=== PATIENT | female | born 1985 | race Hispanic/Latino ===

== ENCOUNTER 2017-12-03 14:27 | Emergency (ER) | payer OTHER, SELFPAY ==
[2017-12-03] MEDS ORDERED: NA CHLORIDE 0.9% 1,000 ML ONE (15:22)
[2017-12-03] MEDS ORDERED: MECLIZINE HCL 12.5 MG TAB ONE (15:22)
--- NOTE | 2017-12-03 15:35 | RAD REPORT ---
EXAM DESCRIPTION: CT - Head Brain Wo Cont - 12/03/2017 3:29 pm CLINICAL HISTORY: HEADACHE COMPARISON: No comparisons TECHNIQUE: All CT scans are performed using dose optimization technique as appropriate and may inclu de automated exposure control or mA/KV adjustment according to patient size. FINDINGS: No intracranial hemorrhage, hydrocephalus or extra-axial fluid collection.No areas of brai n edema or evidence of midline shift. The paranasal sinuses and mastoids are clear. The calvarium is intact. IMPRESSION: No acute intracranial abnormality.
[2017-12-03 15:54] LABS: Absolute Lymphocytes (CBC) 1.8 K/uL (0.7-4.9); Absolute Monocytes 0.5 K/uL (0.1-1.3); Absolute Neutrophil 7.5 K/uL (1.8-8.0); Basophils % 0.7 % (0-1.3); Eosinophils % 0.5 % (0-4.4); Hematocrit 40.3 % (36.0-45.0); Lymphocytes % 18.6 % (15.3-44.8); MCH 28.7 pg (27.0-35.0); MCV 83.2 fL (80-100); MPV 7.4 fL (7.6-11.3); Monocytes % 4.7 % (3.3-12.3); RBC Red Blood Cell Count 4.84 M/uL (3.86-4.86)
[2017-12-03 16:03] LABS: Bicarbonate 26 mEq/L (21-31); Glucose Level 134 mg/dL (65-120); Lipase 21 U/L (22-51); Potassium 3.6 mEq/L (3.6-5.0); Sodium Level 138 mEq/L (135-145)
[2017-12-03 16:09] LABS: ALT/SGPT 26 IU/L (10-60); AST/SGOT 22 IU/L (10-42); Albumin 4.4 g/dL (3.2-5.5); Alkaline Phosphatase 88 IU/L (42-121); Amylase Level 46 U/L (28-100); BUN Blood Urea Nitrogen 12 mg/dL (6-20); Bilirubin Direct < 0.1 mg/dL (0-0.2); Bilirubin Total 0.6 mg/dL (0.3-1.2); Protein, Total 8.4 g/dL (6.0-8.3)
--- NOTE | 2017-12-03 16:19 | ER ---
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 Transition of care: patient was not received from another setting of care. Onset of symptoms was December 03, 2017. Risk Assessment: Do you want to hurt yourself or someone else? Patient reports no desire to harm self or others. Initial Sepsis Screen: Does the patient meet any 2 criteria? No. Patient's initial sepsis screen is negative. Does the patient have a suspected source of infection? No. Patient's initial sepsis screen is negative. Care prior to arrival: None. 14:33 Method Of Arrival: Ambulatory 14:33 Acuity: LARY 3 Triage Assessment: 14:36 General: Appears in no apparent distress. uncomfortable, Behavior is calm, cooperative, hj appropriate for age. Pain: Complains of pain in head. GI: Reports nausea. 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 - Social history:: Smoking status: Patient/guardian denies using tobacco, Patient/guardian denies using alcohol. - Ebola Screening: : Patient negative for fever greater than or equal to 101.5 degrees Fahrenheit, and additional compatible Ebola Virus Disease symptoms Patient denies exposure to infectious person Patient denies travel to an Ebola-affected area in the 21 days before illness onset. Screenin:37 Abuse screen: Denies threats or abuse. Denies injuries from another. Nutritional hj screening: No deficits noted. Tuberculosis screening: No symptoms or risk factors identified. Fall Risk None identified. Assessment: 14:37 GI: Abdomen is non-distended. hj 14:53 General: Appears in no apparent distress. uncomfortable, Behavior is calm, cooperative, aj1 appropriate for age. Pain: Complains of pain in occipital area, right eye and left eye Pain does not radiate. Pain currently is 8 out of 10 on a pain scale. Quality of pain is described as throbbing, Pain began months ago Is continuous, Alleviated by nothing. Aggravated by nothing. Neuro: Level of Consciousness is awake, alert, obeys commands, Oriented to person, place, time, situation, Moves all extremities. Full function Gait is steady, Speech is normal, Facial symmetry appears normal, Pupils are PERRLA, Intact Reports dizziness, headache photophobia. Cardiovascular: Patient's skin is warm and dry. Respiratory: Airway is patent Respiratory effort is even, unlabored, Respiratory pattern is regular, symmetrical. GI: Abdomen is non-distended, Reports nausea. : No signs and/or symptoms were reported regarding the genitourinary system. EENT: No signs and/or symptoms were reported regarding the EENT system. Derm: No signs and/or symptoms reported regarding the dermatologic system. Skin is pink, warm \\T\\ dry. normal. Musculoskeletal: No signs and/or symptoms reported regarding the musculoskeletal system. Circulation, motion, and sensation intact. 15:44 Reassessment: Patient appears in no apparent distress at this time. No changes from aj1 previously documented assessment. Patient and/or family updated on plan of care and expected duration. Pain level reassessed. Patient is alert, oriented x 3, equal unlabored respirations, skin warm/dry/pink. 16:30 Reassessment: Patient discharge pending finishing bolus of IV fluids per fransico Nelson1 BRAKE OPERATOR SHEET METAL. 16:44 Reassessment: Patient appears in no apparent distress at this time. No changes from aj1 previously documented assessment. Patient and/or family updated on plan of care and expected duration. Pain level reassessed. Patient is alert, oriented x 3, equal unlabored respirations, skin warm/dry/pink. 17:36 Reassessment: Patient appears in no apparent distress at this time. No changes from aj1 previously documented assessment. Patient and/or family updated on plan of care and expected duration. Pain level reassessed. Patient is alert, oriented x 3, equal unlabored respirations, skin warm/dry/pink. Vital Signs: 14:37 BP 153 / 103; Pulse 98; Resp 18; Temp 98.4(O); Pulse Ox 100% on R/A; Weight 95.25 kg; hj Height 5 ft. 4 in. (162.56 cm); Pain 8/10; 15:44 BP 125 / 81; Pulse 82; Resp 18; Pulse Ox 100% on R/A; aj1 16:44 BP 123 / 76; Pulse 72; Resp 18; Pulse Ox 99% ; aj1 17:36 BP 122 / 75; Pulse 81; Resp 18; Pulse Ox 97% ; aj1 14:37 Body Mass Index 36.05 (95.25 kg, 162.56 cm) ED Course: 14:31 Patient arrived in ED. mr 14:31 None, None is Private Physician. mr 14:35 Triage completed. hj 14:36 Arm band placed on right wrist. hj 14:43 Daylin Hooper, IRMA is Primary Nurse. aj1 14:46 Melani Mittal FNP-C is PHCP. snw 14:46 Brandt Ford MD is Attending Physician. snw 14:53 Patient has correct armband on for positive identification. Bed in low position. Call [facility] light in reach. Side rails up X 1. 14:53 No provider procedures requiring assistance completed. aj1 15:28 Patient moved to [place] via wheelchair. nj 15:28 CT completed. Patient tolerated procedure well. Patient moved back from [place]. nj 15:29 CT Head Brain wo Cont In Process Unspecified. EDMS 15:41 Initial lab(s) drawn, by nc, sent to lab. Inserted saline lock: 20 gauge in right aj1 antecubital area, using aseptic technique. Blood collected. 17:37 IV discontinued, intact, bleeding controlled, No redness/swelling at site. Pressure aj1 dressing applied. Administered Medications: 15:26 Drug: Meclizine 50 mg Route: PO; aj1 17:39 Follow up: Response: No adverse reaction aj1 15:40 Drug: NS 0.9% 1000 ml Route: IV; Rate: 1000 ml; Site: right antecubital; aj1 17:39 Follow up: IV Status: Completed infusion; IV Intake: 1000ml aj1 Intake: 17:39 IV: 1000ml; Total: 1000ml. aj1 Outcome: 16:18 Discharge ordered by MD. interiano 17:38 Discharged to home ambulatory. aj1 17:38 Condition: good 17:38 Discharge instructions given to patient, Instructed on discharge instructions, follow up and referral plans. medication usage, Demonstrated understanding of instructions, follow-up care, medications, Prescriptions given X 1. 17:42 Patient left the ED. aj1 Signatures: Dispatcher [employer] EDMS Daylin Hooper, RN RN aj1 Melani Mittal, CARPENTER REPAIR-C CARPENTER REPAIR-Csnw Leti Ortiz mr Campos Akers RN RN hj Claus Pugh Corrections: (The following items were deleted from the chart) 15:25 14:33 Acuity: LARY 4 venkata hastings
--- NOTE | 2017-12-03 16:19 | EDPHYS ---
Physician Documentation [facility] Name: Juliane Robertson Age: 32 yrs Sex: Female : 1985 Arrival Date: 12/03/2017 Time: 14:31 Bed 23 Private MD: None, None ED Physician Brandt Ford HPI: 12/03 15:32 This 32 yrs old Female presents to ER via Ambulatory with complaints of snw Nausea/Vomiting, Headache. 15:32 The patient presents to the emergency department with nausea, vomiting. Onset: The snw symptoms/episode began/occurred gradually, 4 month(s) ago, and became persistent. Possible causes: unknown. The symptoms are alleviated by nothing. Associated signs and symptoms: The patient has no apparent associated signs or symptoms. Severity of symptoms: At their worst the symptoms were moderate in the emergency department the symptoms are unchanged. It is unknown whether or not the patient has had similar symptoms in the past. pt finished course of antibiotics without any change in symptoms, denies fever. Pain to occipital area with radiation toward bridge of nose. Pt states she has felt off balance since August. Had Mirena placed in March. This week pt began having some nausea and vomiting. 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 - Social history:: Smoking status: Patient/guardian denies using tobacco, Patient/guardian denies using alcohol. - Ebola Screening: : Patient negative for fever greater than or equal to 101.5 degrees Fahrenheit, and additional compatible Ebola Virus Disease symptoms Patient denies exposure to infectious person Patient denies travel to an Ebola-affected area in the 21 days before illness onset. ROS: 15:31 Constitutional: Negative for fever, chills, and weight loss, Eyes: Negative for injury, snw pain, redness, and discharge, ENT: Negative for injury, pain, and discharge, Neck: Negative for injury, pain, and swelling, Cardiovascular: Negative for chest pain, palpitations, and edema, Respiratory: Negative for shortness of breath, cough, wheezing, and pleuritic chest pain. 15:31 Back: Negative for injury and pain, : Negative for injury, bleeding, discharge, and swelling, MS/Extremity: Negative for injury and deformity, Skin: Negative for injury, rash, and discoloration. 15:31 Abdomen/GI: Positive for nausea and vomiting. 15:31 Neuro: Positive for dizziness. Exam: 15:31 Head/Face: Normocephalic, atraumatic. Eyes: Pupils equal round and reactive to light, snw extra-ocular motions intact. Lids and lashes normal. Conjunctiva and sclera are non-icteric and not injected. Cornea within normal limits. Periorbital areas with no swelling, redness, or edema. ENT: Nares patent. No nasal discharge, no septal abnormalities noted. Tympanic membranes are normal and external auditory canals are clear. Oropharynx with no redness, swelling, or masses, exudates, or evidence of obstruction, uvula midline. Mucous membranes moist. Neck: Trachea midline, no thyromegaly or masses palpated, and no cervical lymphadenopathy. Supple, full range of motion without nuchal rigidity, or vertebral point tenderness. No Meningismus. Chest/axilla: Normal chest wall appearance and motion. Nontender with no deformity. No lesions are appreciated. Cardiovascular: Regular rate and rhythm with a normal S1 and S2. No gallops, murmurs, or rubs. Normal PMI, no JVD. No pulse deficits. Respiratory: Lungs have equal breath sounds bilaterally, clear to auscultation and percussion. No rales, rhonchi or wheezes noted. No increased work of breathing, no retractions or nasal flaring. Abdomen/GI: Soft, non-tender, with normal bowel sounds. No distension or tympany. No guarding or rebound. No evidence of tenderness throughout. Back: No spinal tenderness. No costovertebral tenderness. Full range of motion. Skin: Warm, dry with normal turgor. Normal color with no rashes, no lesions, and no evidence of cellulitis. MS/ Extremity: Pulses equal, no cyanosis. Neurovascular intact. Full, normal range of motion. Neuro: Awake and alert, GCS 15, oriented to person, place, time, and situation. Cranial nerves II-XII grossly intact. Motor strength 5/5 in all extremities. Sensory grossly intact. Cerebellar exam normal. Normal gait. Psych: Awake, alert, with orientation to person, place and time. Behavior, mood, and affect are within normal limits. 15:31 Constitutional: The patient appears alert, awake, comfortable, well developed, well groomed, well nourished. Vital Signs: 14:37 BP 153 / 103; Pulse 98; Resp 18; Temp 98.4(O); Pulse Ox 100% on R/A; Weight 95.25 kg; hj Height 5 ft. 4 in. (162.56 cm); Pain 8/10; 15:44 BP 125 / 81; Pulse 82; Resp 18; Pulse Ox 100% on R/A; aj1 16:44 BP 123 / 76; Pulse 72; Resp 18; Pulse Ox 99% ; aj1 17:36 BP 122 / 75; Pulse 81; Resp 18; Pulse Ox 97% ; aj1 14:37 Body Mass Index 36.05 (95.25 kg, 162.56 cm) hj MDM: 14:51 Patient medically screened. julius 14:55 Patient medically screened. snw 16:23 Data reviewed: vital signs, nurses notes. Data interpreted: Pulse oximetry: on room air snw is 100 %. Interpretation: normal. Counseling: I had a detailed discussion with the patient and/or guardian regarding: the historical points, exam findings, and any diagnostic results supporting the discharge/admit diagnosis, the presence of at least one elevated blood pressure reading (>120/80) during this emergency department visit, lab results, radiology results, the need for outpatient follow up, to return to the emergency department if symptoms worsen or persist or if there are any questions or concerns that arise at home. Special discussion: Based on the history and exam findings, there is no indication for further emergent testing or inpatient evaluation. I discussed with the patient/guardian the need to see the primary care provider for further evaluation of the symptoms. 12/03 14:51 Order name: Urine Microscopic Only; Complete Time: 06:34 snw 12/03 15:15 Order name: Amylase, Serum; Complete Time: 16:12 snw 12/03 15:15 Order name: Basic Metabolic Panel; Complete Time: 16:12 snw 12/03 15:15 Order name: CBC with Diff; Complete Time: 16:12 snw 12/03 15:15 Order name: Creatinine for Radiology; Complete Time: 16:12 snw 12/03 15:15 Order name: Hepatic Function; Complete Time: 16:12 snw 12/03 14:51 Order name: Urine Test (obtain specimen); Complete Time: 15:03 snw 12/03 14:51 Order name: CT Head Brain wo Cont; Complete Time: 15:38 snw 12/03 15:15 Order name: Lipase; Complete Time: 16:12 snw 12/03 15:31 Order name: Urine Dipstick--Ancillary (enter results); Complete Time: 06:34 bd 12/03 15:31 Order name: Urine --Ancillary (enter results); Complete Time: 06:34 bd 12/03 17:39 Order name: Urine Culture EDWY 12/03 14:51 Order name: Urine Dipstick-Ancillary (obtain specimen); Complete Time: 15:03 snw 12/03 15:15 Order name: IV Saline Lock; Complete Time: 15:41 snw 12/03 15:15 Order name: Labs collected and sent; Complete Time: 15:41 snw Administered Medications: 15:26 Drug: Meclizine 50 mg Route: PO; aj1 17:39 Follow up: Response: No adverse reaction aj1 15:40 Drug: NS 0.9% 1000 ml Route: IV; Rate: 1000 ml; Site: right antecubital; aj1 17:39 Follow up: IV Status: Completed infusion; IV Intake: 1000ml aj1 Disposition: 12/03/17 16:18 Discharged to Home. Impression: Malaise and fatigue. - Condition is Stable. - Discharge Instructions: Cooking with Less Salt, Hypertension, Proteinuria, Fatigue. - Prescriptions for Zofran 4 mg Oral Tablet - take 1 tablet by ORAL route 3 times per day As needed; 20 tablet. - Work release form, Medication Reconciliation Form, Thank You Letter, Antibiotic Education, Prescription Opioid Use form. - Follow up: Private Physician; When: 1 - 2 days; Reason: Recheck today's complaints, Continuance of care, Re-evaluation by your physician. Follow up: Emergency Department; When: As needed; Reason: Worsening of condition. - Notes: Please keep log of blood pressure readings. Addendum: 12/07/2017 19:01 Co-signature as Attending Physician, Brandt Ford MD. g s Signatures: Dispatcher [employer] Daylin Bailey RN RN aj1 Porter Whitfield MD MD cha Therrien, Shelly, BUMP GRADER OPERATOR-C BUMP GRADER OPERATOR-Csnw Campos Akers, RN IRMA hj Brandt Ford MD MD gs Corrections: (The following items were deleted from the chart) 12/03 17:42 16:18 12/03/2017 16:18 Discharged to Home. Impression: Malaise and fatigue. Condition aj1 is Stable. Forms are Medication Reconciliation Form, Thank You Letter, Antibiotic Education, Prescription Opioid Use. Follow up: Private Physician; When: 1 - 2 days; Reason: Recheck today's complaints, Continuance of care, Re-evaluation by your physician. Follow up: Emergency Department; When: As needed; Reason: Worsening of condition. snw
[2017-12-03 16:57] LABS: Urine Blood NEGATIVE (NEG); Urine Glucose NEGATIVE (NEG); Urine Protein 3+ (NEG); Urine Specific Gravity >1.030 (1.005-1.030)
[2017-12-03 17:38] LABS: Urine Bacteria 20-50 /HPF (<20); Urine Culture Reflex Order REFLEXED; Urine RBC <5 /HPF (NONE SEEN)
[2017-12-03 18:04] VITALS: TEMP 98.4
[2017-12-03 18:07] VITALS: BP 122/75; O2SAT 97
== END 2017-12-03 17:42 | disposition home or self-care (01) ==
LOC: ER 14:27
DX: R53.81 Other malaise (principal); R53.83 Other fatigue
CPT/HCPCS: 36415; 70450; 80048; 80076; 81003; 81015; 81025; 82150; 83690; 85025; 87086; 87088; 96360; 96361; 99284; J7030

== ENCOUNTER 2018-02-05 00:16 | Emergency (ER) | payer OTHER, SELFPAY ==
[2018-02-05] MEDS ORDERED: ONDANSETRON 4 MG (ODT) TAB ONE (01:02)
[2018-02-05 01:44] LABS: Urine Blood NEGATIVE (NEG); Urine Glucose NEGATIVE (NEG); Urine Protein NEGATIVE (NEG); Urine pH 6.5 (5.0-7.0)
[2018-02-05] MEDS ORDERED: KETOROLAC 30 MG/ML INJ ONE (02:38)
--- NOTE | 2018-02-05 02:42 | EDPHYS ---
Physician Documentation [facility] Name: Juliane Robertson Age: 32 yrs Sex: Female : 1985 Arrival Date: 02/05/2018 Time: 00:20 Bed 20 Private MD: Abdulaziz Bennett ED Physician Kalen Georges HPI: 02/05 01:00 This 32 yrs old Female presents to ER via Ambulatory with complaints of pm1 TINGLING OF ARM SHOULDER AND BACK OF HEAD. 01:00 The patient or guardian complains of pain. Onset: The symptoms/episode began/occurred pm1 this morning. Context: The problem was sustained at home, The neck injury/problem resulted from from unknown cause. Associated signs and symptoms: Pertinent positives: numbness, in the left arm, tingling, in the left arm. Modifying factors: The symptoms are alleviated by shaking hand the symptoms are aggravated by nothing. Severity of symptoms: in the emergency department the symptoms have improved. The patient has not experienced similar symptoms in the past. 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 - Social history:: Smoking status: Patient/guardian denies using tobacco. - Ebola Screening: : No symptoms or risks identified at this time. ROS: 01:00 Constitutional: Negative for fever, chills, and weight loss, Eyes: Negative for injury, pm1 pain, redness, and discharge, ENT: Negative for injury, pain, and discharge, Cardiovascular: Negative for chest pain, palpitations, and edema. 01:00 Respiratory: Negative for shortness of breath, cough, wheezing, and pleuritic chest pain, Abdomen/GI: Negative for abdominal pain, nausea, vomiting, diarrhea, and constipation, Back: Negative for injury and pain, : Negative for injury, bleeding, discharge, and swelling, MS/Extremity: Negative for injury and deformity, Skin: Negative for injury, rash, and discoloration. 01:00 Neck: Positive for Pain. 01:00 Neuro: Positive for numbness, tingling, of the left arm. Exam: 01:00 Constitutional: This is a well developed, well nourished patient who is awake, alert, pm1 and in no acute distress. Head/Face: Normocephalic, atraumatic. Eyes: Pupils equal round and reactive to light, extra-ocular motions intact. Lids and lashes normal. Conjunctiva and sclera are non-icteric and not injected. Cornea within normal limits. Periorbital areas with no swelling, redness, or edema. ENT: Nares patent. No nasal discharge, no septal abnormalities noted. Tympanic membranes are normal and external auditory canals are clear. Oropharynx with no redness, swelling, or masses, exudates, or evidence of obstruction, uvula midline. Mucous membranes moist. 01:00 Neck: Trachea midline, no thyromegaly or masses palpated, and no cervical lymphadenopathy. Supple, full range of motion without nuchal rigidity, or vertebral point tenderness. No Meningismus. Chest/axilla: Normal chest wall appearance and motion. Nontender with no deformity. No lesions are appreciated. Cardiovascular: Regular rate and rhythm with a normal S1 and S2. No gallops, murmurs, or rubs. Normal PMI, no JVD. No pulse deficits. Respiratory: Lungs have equal breath sounds bilaterally, clear to auscultation and percussion. No rales, rhonchi or wheezes noted. No increased work of breathing, no retractions or nasal flaring. Abdomen/GI: Soft, non-tender, with normal bowel sounds. No distension or tympany. No guarding or rebound. No evidence of tenderness throughout. 01:00 Skin: Warm, dry with normal turgor. Normal color with no rashes, no lesions, and no evidence of cellulitis. MS/ Extremity: Pulses equal, no cyanosis. Neurovascular intact. Full, normal range of motion. 01:00 Back: normal spinal alignment noted, muscle spasm, is appreciated in the left trapezius. 01:00 Neuro: Orientation: is normal, Cranial nerves: CN II- XII are normal as tested, Motor: moves all fours, strength is normal, strength is 5/5 in all extremities, Sensation: is normal, no obvious gross deficits, Gait: is steady, at a normal pace, without difficulty. Vital Signs: 00:35 BP 145 / 94; Pulse 91; Resp 20; Temp 98.4; Pulse Ox 100% on R/A; Weight 99.79 kg (R); ak1 Height 5 ft. 4 in. (162.56 cm) (R); Pain 5/10; 01:31 BP 122 / 56; Pulse 72; Resp 18; Temp 98.3; Pulse Ox 100% on R/A; ak1 02:07 BP 115 / 60; Pulse 75; Resp 18; Pulse Ox 100% on R/A; ak1 02:45 BP 118 / 57; Pulse 72; Resp 18; Temp 98.3; Pulse Ox 100% on R/A; Pain 3/10; ak1 00:35 Body Mass Index 37.76 (99.79 kg, 162.56 cm) ak1 MDM: 00:37 Patient medically screened. pm1 02:40 Data reviewed: vital signs. Data interpreted: Pulse oximetry: on room air is 100 %. pm1 Interpretation: normal. Counseling: I had a detailed discussion with the patient and/or guardian regarding: the historical points, exam findings, and any diagnostic results supporting the discharge/admit diagnosis, radiology results, the need for outpatient follow up, to return to the emergency department if symptoms worsen or persist or if there are any questions or concerns that arise at home. 02/05 00:59 Order name: Urine Dipstick--Ancillary (enter results); Complete Time: 02:17 ms 02/05 01:00 Order name: Urine --Ancillary (enter results) mt 02/05 00:44 Order name: CT Head C Spine pm1 02/05 01:00 Order name: Urine --Ancillary EDHI 02/05 00:44 Order name: Urine Dipstick-Ancillary (obtain specimen); Complete Time: 00:54 pm1 02/05 00:44 Order name: Urine Test (obtain specimen); Complete Time: 00:54 pm1 Administered Medications: 00:58 Drug: Zofran 4 mg Route: PO; ak1 01:01 Follow up: Response: No adverse reaction ak1 02:37 Drug: TORadol 60 mg Route: IM; Site: left gluteus; ak1 02:37 Follow up: Response: No adverse reaction ak1 Disposition: 07:03 Co-signature as Attending Physician, Kalen Georges MD I agree with the assessment and tw4 plan of care. Attestation: The patient's history, exam findings, diagnostics, and a summary of any interventions or procedures was reviewed in detail with Asif Charles NP. Disposition: 02/05/18 02:41 Discharged to Home. Impression: Radiculopathy, cervical region, Muscle spasm. - Condition is Stable. - Discharge Instructions: Cervical Radiculopathy, Muscle Cramps and Spasms. - Prescriptions for Naprosyn 500 mg Oral Tablet - take 1 tablet by ORAL route 2 times per day take with food; 30 tablet. Cyclobenzaprine 10 mg Oral Tablet - take 1 tablet by ORAL route every 8 hours As needed; 30 tablet. - Medication Reconciliation Form, Thank You Letter form. - Follow up: Emergency Department; When: As needed; Reason: Worsening of condition. Follow up: Private Physician; When: 2 - 3 days; Reason: Recheck today's complaints, Continuance of care, Re-evaluation by your physician. - Problem is new. - Symptoms have improved. Signatures: Dispatcher [employer] EDHI Zoë Briones RN RN ak1 Asif Charles, KRYSTLE GEM SETTER pm1 Kalen Georges MD MD tw4 Corrections: (The following items were deleted from the chart) 02:49 02:41 02/05/2018 02:41 Discharged to Home. Impression: Radiculopathy, cervical region; ak1 Muscle spasm. Condition is Stable. Forms are Medication Reconciliation Form, Thank You Letter, Antibiotic Education, Prescription Opioid Use. Follow up: Emergency Department; When: As needed; Reason: Worsening of condition. Follow up: Private Physician; When: 2 - 3 days; Reason: Recheck today's complaints, Continuance of care, Re-evaluation by your physician. Problem is new. Symptoms have improved. pm1
--- NOTE | 2018-02-05 02:42 | ER ---
Nurse's Notes [facility] Name: Juliane Robertson Age: 32 yrs Sex: Female : 1985 Arrival Date: 02/05/2018 Time: 00:20 Bed 20 Private MD: Abdulaziz Bennett Diagnosis: Radiculopathy, cervical region;Muscle spasm Presentation: 02/05 00:43 Presenting complaint: Patient states: issues with IUD since 03/2017. Dr. Metcalf tried to ak1 remove IUD X2 with no success. pt stated that once "medicaid kicks in" Dr. Metcalf will take pt to OR for IUD removal. pt c/o pain to left bicep at 0300 yesterday. pt c/o left forearm tingling with left hand "falling asleep" at 2030 and burning sensation to left shoulder at 2330. pt with equal clinical care coordinator and full ROM to left hand, elbow and shoulder. Transition of care: patient was not received from another setting of care. Onset of symptoms is unknown. Risk Assessment: Do you want to hurt yourself or someone else? Patient reports no desire to harm self or others. Initial Sepsis Screen: Does the patient meet any 2 criteria? No. Patient's initial sepsis screen is negative. Does the patient have a suspected source of infection? No. Patient's initial sepsis screen is negative. Care prior to arrival: None. 00:43 Method Of Arrival: Ambulatory ak1 00:43 Acuity: LARY 3 ak1 Triage Assessment: 00:37 General: Appears in no apparent distress. Behavior is cooperative, anxious. Pain: ak1 Complains of pain in left arm. EENT: No signs and/or symptoms were reported regarding the EENT system. 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 Gait is steady, Speech is normal, Facial symmetry appears normal. Cardiovascular: No deficits noted. Respiratory: No deficits noted. GI: No signs and/or symptoms were reported involving the gastrointestinal system. : No signs and/or symptoms were reported regarding the genitourinary system. Derm: Reports tingling, nae horse in left bicep at 0300 yesterday. pt c/o tingling to let forearm and left hand "fell asleep" at 2030. pt c/o burning sensation to left shoulder and left side of neck at 2330. pt stated she has been having issues with headaches and dizziness since 03/2017 [address] IUD was placed. Dr. Metcalf tried to remove IUD X2 with no success. pt states after Medicaid "kicks in" Dr. Metcalf will take pt to OR to remove IUD. 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 - Social history:: Smoking status: Patient/guardian denies using tobacco. - Ebola Screening: : No symptoms or risks identified at this time. Screenin:46 Abuse screen: Denies threats or abuse. Denies injuries from another. Nutritional ak1 screening: No deficits noted. Tuberculosis screening: No symptoms or risk factors identified. Fall Risk None identified. Assessment: 00:46 Reassessment: Patient appears in no apparent distress at this time. No changes from ak1 previously documented assessment. Patient is alert, oriented x 3, equal unlabored respirations, skin warm/dry/pink. see triage assessment. 02:18 Reassessment: Patient appears in no apparent distress at this time. No changes from ak1 previously documented assessment. Patient and/or family updated on plan of care and expected duration. Pain level reassessed. Patient is alert, oriented x 3, equal unlabored respirations, skin warm/dry/pink. Vital Signs: 00:35 BP 145 / 94; Pulse 91; Resp 20; Temp 98.4; Pulse Ox 100% on R/A; Weight 99.79 kg (R); ak1 Height 5 ft. 4 in. (162.56 cm) (R); Pain 5/10; 01:31 BP 122 / 56; Pulse 72; Resp 18; Temp 98.3; Pulse Ox 100% on R/A; ak1 02:07 BP 115 / 60; Pulse 75; Resp 18; Pulse Ox 100% on R/A; ak1 02:45 BP 118 / 57; Pulse 72; Resp 18; Temp 98.3; Pulse Ox 100% on R/A; Pain 3/10; ak1 00:35 Body Mass Index 37.76 (99.79 kg, 162.56 cm) ak1 ED Course: 00:20 Patient arrived in ED. es 00:20 Abdulaziz Bennett MD is Private Physician. es 00:28 Zoë Briones RN is Primary Nurse. ak1 00:35 Arm band placed on Patient placed in an exam room, on a stretcher, on pulse oximetry, ak1 Patient notified of wait time. 00:37 Asif Charles NP is PHCP. pm1 00:37 Kalen Georges MD is Attending Physician. pm1 00:46 Triage completed. ak1 00:46 Patient has correct armband on for positive identification. Bed in low position. Call ak1 light in reach. Side rails up X 1. Pulse ox on. NIBP on. 00:54 Urine collected: clean catch specimen, clear. ak1 01:08 CT completed. Patient tolerated procedure well. Patient moved to CT via wheelchair. Patient moved back from CT. 01:09 CT Head C Spine In Process Unspecified. EDMS 01:32 No provider procedures requiring assistance completed. ak1 01:35 Urine --Ancillary (enter results) Sent. ak1 02:38 Patient did not have IV access during this emergency room visit. ak1 Administered Medications: 00:58 Drug: Zofran 4 mg Route: PO; ak1 01:01 Follow up: Response: No adverse reaction ak1 02:37 Drug: TORadol 60 mg Route: IM; Site: left gluteus; ak1 02:37 Follow up: Response: No adverse reaction ak1 Outcome: 02:41 Discharge ordered by . pm1 02:41 Discharged to home ambulatory. ak1 02:41 Condition: good 02:41 Discharge instructions given to patient, Instructed on discharge instructions, follow up and referral plans. no drinking with medication, no driving heavy equipment, medication usage, Demonstrated understanding of instructions, follow-up care, medications, Prescriptions given X 2. 02:49 Patient left the ED. ak1 Signatures: Dispatcher [employer] EDMS Alice Fine Satinder Snider Zoë Briones, IRMA RN ak1 Asif Charles, KRYSTLE ARCHIVES SPECIALIST pm1
[2018-02-05 02:53] VITALS: O2SAT 100
[2018-02-05 02:54] VITALS: TEMP 98.3
[2018-02-05 02:56] VITALS: BP 118/57
--- NOTE | 2018-02-05 08:26 | RAD REPORT ---
EXAM DESCRIPTION: CT - [id number] - 02/05/2018 4:19 am CLINICAL HISTORY: Trauma, head and neck injury. Headache;Radiculopathy COMPARISON: No comparisons TECHNIQUE: Axial 5 mm thick images of the head were obtained. Axial 2 mm thick images of the cervical spine were obtained with sagittal and coronal reconstruction images generated and reviewed. All CT scans are performed using dose optimization technique as appropriate and may include automated exposure control or mA/KV adjustment according to patient size. FINDINGS: CT HEAD WITHOUT CONTRAST: No acute hemorrhage, hydrocephalus or extra-axial collection is identified.No areas of brain edema or midline shift. The paranasal sinuses and mastoids are clear.The calvarium is intact. CT CERVICAL SPINE WITHOUT CONTRAST: No fracture or subluxation.No prevertebral soft tissues swelling is identified. IMPRESSION: No acute intracranial or cervical spine findings.
== END 2018-02-05 02:49 | disposition home or self-care (01) ==
LOC: ER 00:16
DX: M54.12 Radiculopathy, cervical region (principal); M62.838 Other muscle spasm
CPT/HCPCS: 36415; 70450; 72125; 80053; 81003; 81025; 85025; 96372; 96374; 96375; 99284; J2930

== ENCOUNTER 2018-02-05 19:20 | Emergency (ER) | payer OTHER, SELFPAY ==
[2018-02-05] MEDS ORDERED: DIPHENHYDRAMINE 50 MG/ML VIAL ONE (20:06)
[2018-02-05] MEDS ORDERED: METHYLPREDNISOLONE 125 MG INJ ONE (20:06)
[2018-02-05] MEDS ORDERED: FAMOTIDINE 20 MG/2 ML VIAL IV ONE (20:06)
[2018-02-05 20:23] LABS: Absolute Lymphocytes (CBC) 1.9 K/uL (0.7-4.9); Absolute Monocytes 0.4 K/uL (0.1-1.3); Absolute Neutrophil 6.3 K/uL (1.8-8.0); Basophils % 1.6 % (0-1.3); Hematocrit 39.6 % (36.0-45.0); Lymphocytes % 21.6 % (15.3-44.8); MCH 29.1 pg (27.0-35.0); MCV 86.8 fL (80-100); MPV 7.8 fL (7.6-11.3); Monocytes % 4.8 % (3.3-12.3); RBC Red Blood Cell Count 4.57 M/uL (3.86-4.86)
[2018-02-05 20:32] LABS: ALT/SGPT 33 U/L (12-78); AST/SGOT 18 U/L (15-37); Alkaline Phosphatase 84 U/L (45-117); BUN Blood Urea Nitrogen 15 mg/dL (7-18); Bicarbonate 28 mmol/L (21-32); Bilirubin Total 0.4 mg/dL (0.2-1.0); Glucose Level 108 mg/dL (74-106); Potassium 4.1 mmol/L (3.5-5.1); Protein, Total 7.8 g/dL (6.4-8.2); Sodium Level 140 mmol/L (136-145)
--- NOTE | 2018-02-05 20:53 | EDPHYS ---
Physician Documentation [facility] Name: Juliane Robertson Age: 32 yrs Sex: Female : 1985 Arrival Date: 02/05/2018 Time: 19:23 Bed 8 Private MD: Abdulaziz Bennett ED Physician Kalen Georges HPI: 02/05 20:50 This 32 yrs old Female presents to ER via Ambulatory with complaints of pm1 Breathing Difficulty. 20:50 The patient has shortness of breath at rest. Onset: The symptoms/episode began/occurred pm1 yesterday, 1 hour after taking naproxen prescribed from ER visit yesterday. Duration: The symptoms are continuous. The patient's shortness of breath has no apparent modifying factors. Associated signs and symptoms: Pertinent positives: sore throat, Pertinent negatives: chest pain, non-productive cough, productive cough, fever, vomiting. Severity of symptoms: in the emergency department the symptoms are unchanged. The patient has not experienced similar symptoms in the past. The patient has been recently seen at the [facility] Emergency Department, yesterday, for unrelated complaints, muscle spasm of neck. patient believes that her symptoms are related to the inability to have her IUD removed. 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 - Social history:: Smoking status: Patient/guardian denies using tobacco, Patient/guardian denies using alcohol, street drugs. - Ebola Screening: : No symptoms or risks identified at this time. ROS: 20:50 Constitutional: Negative for fever, chills, and weight loss, Eyes: Negative for injury, pm1 pain, redness, and discharge, Neck: Negative for injury, pain, and swelling. 20:50 Cardiovascular: Negative for chest pain, palpitations, and edema. 20:50 Abdomen/GI: Negative for abdominal pain, nausea, vomiting, diarrhea, and constipation, Back: Negative for injury and pain, : Negative for injury, bleeding, discharge, and swelling, MS/Extremity: Negative for injury and deformity, Skin: Negative for injury, rash, and discoloration, Neuro: Negative for headache, weakness, numbness, tingling, and seizure. 20:50 ENT: Positive for sore throat, Negative for drainage from ear(s), ear pain, difficulty swallowing, difficulty handling secretions, hoarseness. 20:50 Respiratory: Positive for shortness of breath, Negative for cough, sputum production, wheezing. Exam: 20:50 Constitutional: This is a well developed, well nourished patient who is awake, alert, pm1 and in no acute distress. Head/Face: Normocephalic, atraumatic. Eyes: Pupils equal round and reactive to light, extra-ocular motions intact. Lids and lashes normal. Conjunctiva and sclera are non-icteric and not injected. Cornea within normal limits. Periorbital areas with no swelling, redness, or edema. ENT: Nares patent. No nasal discharge, no septal abnormalities noted. Tympanic membranes are normal and external auditory canals are clear. Oropharynx with no redness, swelling, or masses, exudates, or evidence of obstruction, uvula midline. Mucous membranes moist. Neck: Trachea midline, no thyromegaly or masses palpated, and no cervical lymphadenopathy. Supple, full range of motion without nuchal rigidity, or vertebral point tenderness. No Meningismus. Chest/axilla: Normal chest wall appearance and motion. Nontender with no deformity. No lesions are appreciated. Cardiovascular: Regular rate and rhythm with a normal S1 and S2. No gallops, murmurs, or rubs. Normal PMI, no JVD. No pulse deficits. Respiratory: Lungs have equal breath sounds bilaterally, clear to auscultation and percussion. No rales, rhonchi or wheezes noted. No increased work of breathing, no retractions or nasal flaring. Abdomen/GI: Soft, non-tender, with normal bowel sounds. No distension or tympany. No guarding or rebound. No evidence of tenderness throughout. Back: No spinal tenderness. No costovertebral tenderness. Full range of motion. Skin: Warm, dry with normal turgor. Normal color with no rashes, no lesions, and no evidence of cellulitis. MS/ Extremity: Pulses equal, no cyanosis. Neurovascular intact. Full, normal range of motion. 20:50 Neuro: Orientation: is normal, Motor: is normal, moves all fours. Vital Signs: 19:36 BP 154 / 85; Pulse 82; Resp 16 S; Temp 98.6(O); Pulse Ox 100% on R/A; Weight 99.79 kg bb (R); Height 5 ft. 4 in. (162.56 cm) (R); Pain 8/10; 20:11 BP 124 / 80; Pulse 91; Resp 16; Pulse Ox 99% on R/A; mt 20:55 BP 135 / 93; Pulse 80; Resp 16; Pulse Ox 100% on R/A; mt 19:36 Body Mass Index 37.76 (99.79 kg, 162.56 cm) bb MDM: 19:32 Patient medically screened. tw4 20:50 Data reviewed: vital signs. Data interpreted: Pulse oximetry: on room air is 99 %. pm1 Interpretation: normal. Counseling: I had a detailed discussion with the patient and/or guardian regarding: the historical points, exam findings, and any diagnostic results supporting the discharge/admit diagnosis, the need for outpatient follow up, to return to the emergency department if symptoms worsen or persist or if there are any questions or concerns that arise at home. 02/05 19:56 Order name: CBC with Diff; Complete Time: 20:49 pm1 02/05 19:56 Order name: CMP; Complete Time: 20:49 pm1 02/05 19:56 Order name: IV Saline Lock; Complete Time: 20:02 pm1 Administered Medications: 20:14 Drug: Pepcid 20 mg Route: IVP; Site: right antecubital; ak1 21:00 Follow up: Response: No adverse reaction ak1 20:14 Drug: SOLU-Medrol 125 mg Route: IVP; Site: right antecubital; ak1 21:00 Follow up: Response: No adverse reaction ak1 20:14 Drug: Benadryl 25 mg Route: IVP; Site: right antecubital; ak1 21:00 Follow up: Response: No adverse reaction ak1 Disposition: 02/06 02:48 Co-signature as Attending Physician, Kalen Georges MD I agree with the assessment and tw4 plan of care. Attestation: The patient's history, exam findings, diagnostics, and a summary of any interventions or procedures was reviewed in detail with Asif Charles NP. Disposition: 02/05/18 20:52 Discharged to Home. Impression: Possible drug allergy reaction to naproxen. - Condition is Stable. - Discharge Instructions: Drug Allergy. - Prescriptions for Benadryl 25 mg Oral Capsule - take 1 capsule by ORAL route every 6 hours As needed; 30 tablet. Pepcid 20 mg Oral Tablet - take 1 tablet by ORAL route every 12 hours for 10 days; 20 tablet. Medrol (Soren) 4 mg Oral Tablets, Dose Pack - take 1 tablet by ORAL route as directed - follow package instructions; 1 packet. - Medication Reconciliation Form, Thank You Letter form. - Follow up: Emergency Department; When: As needed; Reason: Worsening of condition. Follow up: Private Physician; When: 2 - 3 days; Reason: Recheck today's complaints, Continuance of care, Re-evaluation by your physician. - Problem is new. - Symptoms have improved. Signatures: Dispatcher [employer] EDMS Nichole Ward RN RN bb Krenek, Amber, RN RN ak1 Asif Charles, KRYSTLE MANAGEMENT ARCHITECT pm1 Kalen Georges MD MD tw4 Corrections: (The following items were deleted from the chart) 02/05 20:52 20:52 02/05/2018 20:52 Discharged to Home. Impression: Possible drug allergic reaction. pm1 Condition is Stable. Forms are Medication Reconciliation Form, Thank You Letter, Antibiotic Education, Prescription Opioid Use. Follow up: Emergency Department; When: As needed; Reason: Worsening of condition. Follow up: Private Physician; When: 2 - 3 days; Reason: Recheck today's complaints, Continuance of care, Re-evaluation by your physician. Problem is new. Symptoms have improved. pm1 21:32 20:52 02/05/2018 20:52 Discharged to Home. Impression: Possible drug allergy reaction ak1 to naproxen. Condition is Stable. Forms are Medication Reconciliation Form, Thank You Letter, Antibiotic Education, Prescription Opioid Use. Follow up: Emergency Department; When: As needed; Reason: Worsening of condition. Follow up: Private Physician; When: 2 - 3 days; Reason: Recheck today's complaints, Continuance of care, Re-evaluation by your physician. Problem is new. Symptoms have improved. pm1
--- NOTE | 2018-02-05 20:53 | ER ---
Nurse's Notes [facility] Name: Juliane Robertson Age: 32 yrs Sex: Female : 1985 Arrival Date: 02/05/2018 Time: 19:23 Bed 8 Private MD: Abdulaziz Bennett Diagnosis: Possible drug allergy reaction to naproxen Presentation: 02/05 19:32 Presenting complaint: Patient states: she was here last night but this afternoon she bb started having difficulty breathing, with tightness in throat and pressure in the epigastric area. Transition of care: patient was not received from another setting of care. Onset of symptoms was February 05, 2018. Risk Assessment: Do you want to hurt yourself or someone else? Patient reports no desire to harm self or others. Initial Sepsis Screen: Does the patient meet any 2 criteria? No. Patient's initial sepsis screen is negative. Does the patient have a suspected source of infection? No. Patient's initial sepsis screen is negative. Care prior to arrival: None. 19:32 Method Of Arrival: Ambulatory bb 19:32 Acuity: LARY 4 bb Triage Assessment: 20:55 Respiratory: Onset: The symptoms/episode began/occurred. ak1 20:58 General: Appears in no apparent distress. Behavior is cooperative, anxious. ak1 Respiratory: Reports shortness of breath since this afternoon. pt continues to believe that her IUD is causing her allergic reaction. pt was seen in ER last night for muscle spasm in upper back and shoulder. the patient has mild shortness of breath. 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 - Social history:: Smoking status: Patient/guardian denies using tobacco, Patient/guardian denies using alcohol, street drugs. - Ebola Screening: : No symptoms or risks identified at this time. Screenin:55 Abuse screen: Denies threats or abuse. Denies injuries from another. Nutritional ak1 screening: No deficits noted. Tuberculosis screening: No symptoms or risk factors identified. Fall Risk None identified. Assessment: 19:30 General: Appears in no apparent distress. Behavior is cooperative, anxious. Pain: ak1 Complains of pain in epigastric area. Neuro: No deficits noted. Cardiovascular: Rhythm is regular. Respiratory: Airway is patent Respiratory effort is even, unlabored, Breath sounds are clear bilaterally. GI: No signs and/or symptoms were reported involving the gastrointestinal system. : No signs and/or symptoms were reported regarding the genitourinary system. EENT: No signs and/or symptoms were reported regarding the EENT system. Derm: Skin is dry, Skin temperature is warm no rash or hives noted in ER. Musculoskeletal: No signs and/or symptoms reported regarding the musculoskeletal system. 20:57 Reassessment: Patient appears in no apparent distress at this time. Patient is alert, ak1 oriented x 3, equal unlabored respirations, skin warm/dry/pink. no resp distress noted while in ER, no vomiting noted while in ER. no rash, no hives noted while in ER. Vital Signs: 19:36 BP 154 / 85; Pulse 82; Resp 16 S; Temp 98.6(O); Pulse Ox 100% on R/A; Weight 99.79 kg bb (R); Height 5 ft. 4 in. (162.56 cm) (R); Pain 8/10; 20:11 BP 124 / 80; Pulse 91; Resp 16; Pulse Ox 99% on R/A; mt 20:55 BP 135 / 93; Pulse 80; Resp 16; Pulse Ox 100% on R/A; mt 19:36 Body Mass Index 37.76 (99.79 kg, 162.56 cm) ED Course: 19:23 Patient arrived in ED. es 19:23 Abdulaziz Bennett MD is Private Physician. es 19:32 Kalen Georges MD is Attending Physician. tw4 19:35 Triage completed. bb 19:36 Asif Charles NP is PHCP. pm1 19:36 Arm band placed on Patient placed in an exam room, on a stretcher, on pulse oximetry. bb 19:58 Zoë Briones, RN is Primary Nurse. ak1 20:02 Inserted saline lock: 20 gauge in right antecubital area, using aseptic technique. mt Blood collected. 20:59 Patient has correct armband on for positive identification. Bed in low position. Call ak1 light in reach. Side rails up X2. Adult w/ patient. Pulse ox on. NIBP on. 20:59 No provider procedures requiring assistance completed. ak1 21:32 IV discontinued, intact, bleeding controlled, No redness/swelling at site. Pressure ak1 dressing applied. Administered Medications: 20:14 Drug: Pepcid 20 mg Route: IVP; Site: right antecubital; ak1 21:00 Follow up: Response: No adverse reaction ak1 20:14 Drug: SOLU-Medrol 125 mg Route: IVP; Site: right antecubital; ak1 21:00 Follow up: Response: No adverse reaction ak1 20:14 Drug: Benadryl 25 mg Route: IVP; Site: right antecubital; ak1 21:00 Follow up: Response: No adverse reaction ak1 Outcome: 20:52 Discharge ordered by . pm1 20:59 Condition: improved ak1 21:32 Discharged to home ambulatory, with family. ak1 21:32 Discharge instructions given to patient, family, Instructed on discharge instructions, follow up and referral plans. no drinking with medication, no driving heavy equipment, medication usage, Demonstrated understanding of instructions, follow-up care, medications, Prescriptions given X 3. 21:32 Patient left the ED. ak1 Signatures: Alice Fine Brenda, RN RN Zoë Preciado RN RN ak1 Asif Charles, KRYSTLE MANAGER PROPOSAL pm1 Tania Ruiz mt, Terrence, MD MD tw4
[2018-02-05 21:44] VITALS: TEMP 98.6
[2018-02-05 21:47] VITALS: BP 135/93; O2SAT 100
== END 2018-02-05 21:32 | disposition home or self-care (01) ==
LOC: ER 19:20
DX: R06.02 Shortness of breath (principal); R07.0 Pain in throat
CPT/HCPCS: 36415; 80053; 85025; 96374; 96375; 99284; J2930

== ENCOUNTER 2018-03-04 07:06 | Day surgery (SDC) | payer OTHER ==
[2018-02-28 16:55] LABS: Absolute Lymphocytes (CBC) 2.1 K/uL (0.7-4.9); Absolute Monocytes 0.4 K/uL (0.1-1.3); Absolute Neutrophil 6.2 K/uL (1.8-8.0); Basophils % 0.7 % (0-1.3); Eosinophils % 0.6 % (0-4.4); Hematocrit 39.3 % (36.0-45.0); Lymphocytes % 23.8 % (15.3-44.8); MCH 29.5 pg (27.0-35.0); MPV 7.8 fL (7.6-11.3); Monocytes % 4.9 % (3.3-12.3); RBC Red Blood Cell Count 4.57 M/uL (3.86-4.86)
[2018-02-28 17:07] LABS: Potassium 3.9 mmol/L (3.5-5.1)
[2018-03-04 07:24] LABS: Specific Gravity >= 1.030 (1.005-1.030)
[2018-03-04] MEDS ORDERED: Ringers Lactate 1,000 ML IV ONE (07:31)
[2018-03-04] MEDS ORDERED: PROPOFOL 200 MG/20 ML VIAL IV ONE (08:22)
[2018-03-04] MEDS ORDERED: MIDAZOLAM HCL 2 MG/2 ML INJ ONE (08:22)
[2018-03-04] MEDS ORDERED: ROCURONIUM 50 MG/5 ML VIAL IV ONE (08:22)
[2018-03-04] MEDS ORDERED: LIDOCAINE 2% MPF 5 ML VIAL ONE (08:22)
[2018-03-04] MEDS ORDERED: FENTANYL CITR 100 MCG/2 ML ONE (08:22)
[2018-03-04] MEDS ORDERED: SILVER NITRATE 1 APPL TOP ONE ×2 (08:26→09:32)
[2018-03-04] MEDS ORDERED: NA CHLORIDE 0.9% 1,000 ML ONE (08:26)
[2018-03-04] MEDS ORDERED: LIDOCAINE 1% W/EPI 1:100,000 MDV 50 ML VIAL ONE (08:26)
[2018-03-04] MEDS ORDERED: KETOROLAC 30 MG/ML INJ ONE (08:46)
[2018-03-04] MEDS ORDERED: DEXAMETHASONE 10 MG/ML VIAL ONE (08:46)
[2018-03-04] MEDS ORDERED: ONDANSETRON HCL 40 MG/20 ML VIAL ONE (08:51)
[2018-03-04] MEDS: Ringers Lactate 1,000 ML IV ONE ×2 (09:06→09:27)
[2018-03-04] MEDS ORDERED: MEPERIDINE HCL 50 MG/ML AMP ONE (09:29)
--- NOTE | 2018-03-04 09:34 | P.OP ---
Preoperative diagnosis: Retained IUD Postoperative diagnosis: Same Primary procedure: Operative hysteroscopy for IUD removal Secondary procedure: Dx hysteroscopy Anesthesia: General with LMA Estimated blood loss: Minimal Specimen: IUD Findings: See operative report Operative Technique: Findings: Bimanual exam revealed normal sized anteverted uterus with limited mobility and poor descensus. Good pelvic support. Normal appearing external genitalia, vagina, and cervix. IUD strings not visualized, small appearing cervix. Uterus sounded to 9 cm. Hysteroscopy revealed fluffy endometrium with blood clots and freely mobile IUD in cavity, not-embedded. IUD strings also visualized within cavity. No fibroids or polyps noted. [place] partially obscured due presence of blood. Uterine cavity appeared otherwise normal shape. After informed consent was obtained, the patient was taken to the operating room. General anesthesia was obtained without difficulty. She was prepped and draped in the dorsal lithotomy position in the usual sterile fashion. Bladder was drained with a red rubber catheter. A right angle vaginal and Mcclendon retractor were used to visualize the cervix with limited view. Retractors were removed and a speculum was used instead. The cervix was better visualized and the anterior lip of the was grasped with a single tooth tenaculum. Speculum was removed and was replaced with retractors. The uterus was gently sounded to 9 cm. Dilation with Hanks dilators was performed with without difficulty. Next , a 5 mm hysteroscope was advanced with saline infusion. Inspection of the uterine cavity revealed findings as above. Images were taken. Operative port was placed on hysteroscopy and grasping forceps used to retrieve IUD under direct visualization. It was removed with ease. Hysteroscope was removed. Next, tenaculum was removed and hemostasis was achieved with the use of pressure and silver nitrate. Vaginal retractors were removed. This concluded the case. There were no complications and patient tolerated the procedure well. Instruments counts were correct x2. Pt was taken to PACU in good condition. Pathology: Mirena IUD Complications: None Fluids & blood products: Per anesthesia Transferred to: Recovery Room Condition: Good
[2018-03-04 10:34] VITALS: BP 124/69; TEMP 97.8; O2SAT 100
== END 2018-03-04 10:35 | disposition home or self-care (01) ==
LOC: OR 07:06
PROVIDERS: ATTEND Obstetrics & Gynecology
PROC: 0UPD8HZ Removal of Contraceptive Device from Uterus and Cervix, Via Natural or Artificial Opening Endoscopic (ICD-10-PCS; principal; 2018-03-04 08:30)
DX: Z30.432 Encounter for removal of intrauterine contraceptive device (principal); M54.5 Low back pain; Z88.3 Allergy status to other anti-infective agents
CPT/HCPCS: 36415; 80048; 81025; 85025; 86850; 86900; 86901; 88300; J1100; J2175; J2250; J2405; J3010; J7030

== ENCOUNTER 2018-03-21 21:37 | Emergency (ER) | payer OTHER ==
[2018-03-21 22:35] LABS: Urine Culture Reflex Order NOT NEEDED
[2018-03-21 22:35] LABS: Urine Specific Gravity 1.025 (1.005-1.030)
[2018-03-21 22:35] LABS: Urine Blood TRACE (NEG); Urine Glucose NEGATIVE (NEG); Urine Protein 1+ (NEG); Urine Specific Gravity 1.025 (1.005-1.030)
[2018-03-21] MEDS ORDERED: HYDROCODONE/APAP 5/325 MG TAB ONE (22:37)
[2018-03-21] MEDS ORDERED: CEFTRIAXONE 1000 MG/VIAL ONE (22:37)
[2018-03-21] MEDS ORDERED: PANTOPRAZOLE 40MG TABLET PO ONE (22:37)
[2018-03-21] MEDS ORDERED: WATER FOR INJ,STERILE 10 ML ONE (22:37)
[2018-03-21 22:39] LABS: Urine Bacteria <20 /HPF (<20); Urine Mucus 2+ /HPF (NONE SEEN); Urine RBC NONE SEEN /HPF (NONE SEEN)
[2018-03-21] MEDS ORDERED: KETOROLAC 30 MG/ML INJ ONE (22:52)
--- NOTE | 2018-03-21 23:19 | EDPHYS ---
Physician Documentation [facility] Name: Juliane Robertson Age: 32 yrs Sex: Female : 1985 Arrival Date: 03/21/2018 Time: 21:40 Bed 25 Private MD: ED Physician Porter Whitfield HPI: 03/21 22:24 This 32 yrs old Female presents to ER via Ambulatory with complaints of Flank snw Pain. 22:24 The patient complains of pain in the right mid back. The pain does not radiate. Onset: snw The symptoms/episode began/occurred 1 week(s) ago, and became persistent. Associated signs and symptoms: Pertinent negatives: fever, vomiting. Severity of pain: At its worst the pain was moderate. The patient has not experienced similar symptoms in the past. The patient has been recently seen by a physician: the patient's primary care provider, earlier today, with similar presenting complaints, was given a prescription for pain medications. pt had cholecystectomy. DIRECTOR OF BUSINESS APPLICATIONS: 21:45 LMP 02/27/2018 aj Historical: - Allergies: 21:45 Bactrim; aj - Home Meds: 21:45 Zofran Oral [Active]; aj - PMHx: 21:45 Hypertension; aj - PSHx: 21:45 Cholecystectomy; ; aj - Immunization history:: Adult Immunizations up to date. - Social history:: Smoking status: Patient/guardian denies using tobacco. - Ebola Screening: : Patient negative for fever greater than or equal to 101.5 degrees Fahrenheit, and additional compatible Ebola Virus Disease symptoms Patient denies exposure to infectious person Patient denies travel to an Ebola-affected area in the 21 days before illness onset No symptoms or risks identified at this time. ROS: 22:21 Constitutional: Negative for fever, chills, and weight loss, Eyes: Negative for injury, snw pain, redness, and discharge, ENT: Negative for injury, pain, and discharge, Neck: Negative for injury, pain, and swelling, Cardiovascular: Negative for chest pain, palpitations, and edema, Respiratory: Negative for shortness of breath, cough, wheezing, and pleuritic chest pain, Abdomen/GI: Negative for abdominal pain, nausea, vomiting, diarrhea, and constipation, MS/Extremity: Negative for injury and deformity, Skin: Negative for injury, rash, and discoloration, Neuro: Negative for headache, weakness, numbness, tingling, and seizure. 22:21 Back: Positive for flank pain, on the right. 22:21 : Positive for recent UTI, only took two days of abx second to allergic reaction. IUD removed. Meds for pain written today but not picked up. Exam: 22:20 Constitutional: This is a well developed, well nourished patient who is awake, alert, snw and in no acute distress. Head/Face: Normocephalic, atraumatic. Eyes: Pupils equal round and reactive to light, extra-ocular motions intact. Lids and lashes normal. Conjunctiva and sclera are non-icteric and not injected. Cornea within normal limits. Periorbital areas with no swelling, redness, or edema. ENT: Nares patent. No nasal discharge, no septal abnormalities noted. Tympanic membranes are normal and external auditory canals are clear. Oropharynx with no redness, swelling, or masses, exudates, or evidence of obstruction, uvula midline. Mucous membranes moist. Neck: Trachea midline, no thyromegaly or masses palpated, and no cervical lymphadenopathy. Supple, full range of motion without nuchal rigidity, or vertebral point tenderness. No Meningismus. Chest/axilla: Normal chest wall appearance and motion. Nontender with no deformity. No lesions are appreciated. Cardiovascular: Regular rate and rhythm with a normal S1 and S2. No gallops, murmurs, or rubs. Normal PMI, no JVD. No pulse deficits. Respiratory: Lungs have equal breath sounds bilaterally, clear to auscultation and percussion. No rales, rhonchi or wheezes noted. No increased work of breathing, no retractions or nasal flaring. Abdomen/GI: Soft, non-tender, with normal bowel sounds. No distension or tympany. No guarding or rebound. No evidence of tenderness throughout. Skin: Warm, dry with normal turgor. Normal color with no rashes, no lesions, and no evidence of cellulitis. MS/ Extremity: Pulses equal, no cyanosis. Neurovascular intact. Full, normal range of motion. Neuro: Awake and alert, GCS 15, oriented to person, place, time, and situation. Cranial nerves II-XII grossly intact. Motor strength 5/5 in all extremities. Sensory grossly intact. Cerebellar exam normal. Normal gait. 22:20 Back: pain, that is mild, that is moderate, CVA tenderness, that is mild, that is moderate, is noted on the right. Vital Signs: 21:45 BP 146 / 92; Pulse 88; Resp 17; Temp 97.7; Pulse Ox 100% on R/A; Weight 97.07 kg; aj Height 5 ft. 4 in. (162.56 cm); 22:52 BP 138 / 87; Pulse 77; Resp 18; Pulse Ox 99% ; Pain 6/10; fc 23:33 BP 134 / 83; Pulse 71; Resp 20; Temp 98.0(O); Pulse Ox 99% on R/A; Pain 4/10; fc 21:45 Body Mass Index 36.73 (97.07 kg, 162.56 cm) aj MDM: 21:51 Patient medically screened. snw 23:19 Data reviewed: vital signs, nurses notes. Data interpreted: Pulse oximetry: on room air snw is 99 %. Interpretation: normal. Counseling: I had a detailed discussion with the patient and/or guardian regarding: the historical points, exam findings, and any diagnostic results supporting the discharge/admit diagnosis, lab results, the need for outpatient follow up, to return to the emergency department if symptoms worsen or persist or if there are any questions or concerns that arise at home. Special discussion: Based on the history and exam findings, there is no indication for further emergent testing or inpatient evaluation. I discussed with the patient/guardian the need to see the primary care provider for further evaluation of the symptoms. 03/21 21:45 Order name: Urine Culture snw 03/21 21:45 Order name: Urine Microscopic Only; Complete Time: 22:43 snw 03/21 22:09 Order name: Urine Dipstick--Ancillary (enter results); Complete Time: 22:43 ms 03/21 22:10 Order name: Urine --Ancillary (enter results); Complete Time: 22:43 ms 03/21 21:45 Order name: Urine Test (obtain specimen); Complete Time: 22:01 snw 03/21 21:45 Order name: Urine Dipstick-Ancillary (obtain specimen); Complete Time: 22:01 snw Administered Medications: 22:42 Drug: Rocephin (cefTRIAXone) 1 grams Route: IM; Site: left gluteus; fc 23:10 Follow up: Response: No adverse reaction; No change in condition fc 22:46 CANCELLED (medication changed): [place] 5 mg-325 mg 1 tabs PO once fc 22:51 Drug: ProTONIX 40 mg Route: PO; fc 23:10 Follow up: Response: No adverse reaction; No change in condition fc 22:51 Drug: TORadol 60 mg Route: IM; Site: right gluteus; fc 23:10 Follow up: Response: No adverse reaction; Pain is decreased fc Disposition: 03/22 06:36 Co-signature as Attending Physician, Porter Whitfield MD I agree with the assessment and julius plan of care. Disposition: 03/21/18 23:18 Discharged to Home. Impression: Flank pain - right. - Condition is Stable. - Discharge Instructions: Flank Pain, Adult, Urinary Tract Infection, Adult. - Prescriptions for Macrobid 100 mg Oral Capsule - take 1 capsule by ORAL route every 12 hours for 10 days; 20 capsule. - Medication Reconciliation Form, Thank You Letter, Antibiotic Education, Prescription Opioid Use form. - Follow up: Private Physician; When: 2 - 3 days; Reason: Recheck today's complaints, Continuance of care, Re-evaluation by your physician. Follow up: Emergency Department; When: As needed; Reason: Worsening of condition. - Notes: Please coal picker pain medications written by PCP Signatures: Dispatcher [employer] Nishi Lopes, Porter Castellano RN, MD MD cha Therrien, Shelly, PACK MASTER-C PACK MASTER-Csnw Charline Ma RN RN Corrections: (The following items were deleted from the chart) 03/21 22:46 22:26 Ren[place] 5 mg-325 mg 1 tabs PO once ordered. snw fc 23:54 23:18 03/21/2018 23:18 Discharged to Home. Impression: Flank pain - right. Condition is fc Stable. Forms are Medication Reconciliation Form, Thank You Letter, Antibiotic Education, Prescription Opioid Use. Follow up: Private Physician; When: 2 - 3 days; Reason: Recheck today's complaints, Continuance of care, Re-evaluation by your physician. Follow up: Emergency Department; When: As needed; Reason: Worsening of condition. snw
--- NOTE | 2018-03-21 23:19 | ER ---
Nurse's Notes [facility] Name: Juliane Robertson Age: 32 yrs Sex: Female : 1985 Arrival Date: 03/21/2018 Time: 21:40 Bed 25 Private MD: Diagnosis: Flank pain - right Presentation: 03/21 21:43 Presenting complaint: Patient states: Right flank pain since 02/27 after having IUD aj removed. Seen by PCP today for this complaint and called in anti-inflammatory med. Patient was unable to parts picker RX today. Has not taken OTC medications. Transition of care: patient was not received from another setting of care. Onset of symptoms was March 06, 2018. Risk Assessment: Do you want to hurt yourself or someone else? Patient reports no desire to harm self or others. Initial Sepsis Screen: Does the patient meet any 2 criteria? No. Patient's initial sepsis screen is negative. Does the patient have a suspected source of infection? No. Patient's initial sepsis screen is negative. Care prior to arrival: None. 21:43 Method Of Arrival: Ambulatory 21:43 Acuity: LARY 3 aj Triage Assessment: 21:45 General: Appears in no apparent distress. comfortable, obese, Behavior is calm, aj cooperative, appropriate for age. Pain: Complains of pain in posterior aspect of right lateral abdomen. Neuro: Level of Consciousness is awake, alert, obeys commands, Oriented to person, place, time, situation, Appropriate for age. Respiratory: Airway is patent Respiratory effort is even, unlabored, Respiratory pattern is regular, symmetrical. GI: Abdomen is obese. Derm: Skin is intact, is healthy with good turgor, Skin is pink, warm \T\ dry. normal. Musculoskeletal: Reports pain in posterior aspect of right lateral abdomen. [employer]: 21:45 LMP 02/27/2018 aj Historical: - Allergies: 21:45 Bactrim; aj - Home Meds: 21:45 Zofran Oral [Active]; aj - PMHx: 21:45 Hypertension; aj - PSHx: 21:45 Cholecystectomy; ; aj - Immunization history:: Adult Immunizations up to date. - Social history:: Smoking status: Patient/guardian denies using tobacco. - Ebola Screening: : Patient negative for fever greater than or equal to 101.5 degrees Fahrenheit, and additional compatible Ebola Virus Disease symptoms Patient denies exposure to infectious person Patient denies travel to an Ebola-affected area in the 21 days before illness onset No symptoms or risks identified at this time. Screenin:50 Abuse screen: Denies threats or abuse. Nutritional screening: No deficits noted. fc Tuberculosis screening: No symptoms or risk factors identified. Fall Risk None identified. Assessment: 22:02 General: Appears uncomfortable, obese, Behavior is calm, cooperative, appropriate for fc age. Pain: Complains of pain in right low back Quality of pain is described as aching, Pain began 1 day ago. Is continuous. Neuro: Level of Consciousness is awake, alert, obeys commands, Oriented to person, place, time, situation. Cardiovascular: No deficits noted. Respiratory: No deficits noted. GI: No deficits noted. : Reports pain in right flank(s), urinary frequency. EENT: No deficits noted. Derm: Skin is pink, warm \T\ dry. Musculoskeletal: Circulation, motion, and sensation intact. Capillary refill < 3 seconds, Range of motion: intact in all extremities. 22:10 Reassessment: Melani CERAMIC TILE SETTER in to see and examine pt. fc 22:40 Reassessment: Pt driving self home. Discussed medications with Melani CERAMIC TILE SETTER. She will fc change ordered medications. 23:10 Reassessment: No changes from previously documented assessment. Patient and/or family fc updated on plan of care and expected duration. Pain level reassessed. Patient is alert, oriented x 3, equal unlabored respirations, skin warm/dry/pink. Patient states feeling better. 23:25 Reassessment: No changes from previously documented assessment. Patient and/or family fc updated on plan of care and expected duration. Pain level reassessed. Patient is alert, oriented x 3, equal unlabored respirations, skin warm/dry/pink. Pending discharge. Vital Signs: 21:45 BP 146 / 92; Pulse 88; Resp 17; Temp 97.7; Pulse Ox 100% on R/A; Weight 97.07 kg; aj Height 5 ft. 4 in. (162.56 cm); 22:52 BP 138 / 87; Pulse 77; Resp 18; Pulse Ox 99% ; Pain 6/10; fc 23:33 BP 134 / 83; Pulse 71; Resp 20; Temp 98.0(O); Pulse Ox 99% on R/A; Pain 4/10; fc 21:45 Body Mass Index 36.73 (97.07 kg, 162.56 cm) ED Course: 21:40 Patient arrived in ED. do 21:45 Triage completed. aj 21:45 Melani Mittal FNP-C [facility]. snw 21:45 Porter Whitfield MD is Attending Physician. snw 21:45 Arm band placed on right wrist. Patient placed in an exam room. aj 21:50 Patient has correct armband on for positive identification. Placed in gown. Bed in low fc position. Call light in reach. 23:35 No provider procedures requiring assistance completed. Patient did not have IV access fc during this emergency room visit. Administered Medications: 22:42 Drug: Rocephin (cefTRIAXone) 1 grams Route: IM; Site: left gluteus; fc 23:10 Follow up: Response: No adverse reaction; No change in condition fc 22:46 CANCELLED (medication changed): [place] 5 mg-325 mg 1 tabs PO once fc 22:51 Drug: ProTONIX 40 mg Route: PO; fc 23:10 Follow up: Response: No adverse reaction; No change in condition fc 22:51 Drug: TORadol 60 mg Route: IM; Site: right gluteus; fc 23:10 Follow up: Response: No adverse reaction; Pain is decreased fc Outcome: 23:18 Discharge ordered by . snw 23:35 Discharged to home ambulatory. fc 23:35 Condition: good 23:35 Discharge instructions given to patient, Instructed on discharge instructions, follow up and referral plans. no drinking with medication, no driving heavy equipment, medication usage, control, Demonstrated understanding of instructions, follow-up care, medications, Prescriptions given X 1. 23:54 Patient left the ED. fc Signatures: Nishi Gaona, RN RN Melani Ayers FNP-C FNP-Charline Warren RN RN Shira Baires do
[2018-03-21 23:59] VITALS: O2SAT 99
[2018-03-22 00:23] VITALS: BP 134/83; TEMP 98
== END 2018-03-21 23:54 | disposition home or self-care (01) ==
LOC: ER 21:37
DX: R10.9 Unspecified abdominal pain (principal); I10 Essential (primary) hypertension; Z88.1 Allergy status to other antibiotic agents
CPT/HCPCS: 81003; 81015; 81025; 87086; 87088; 96372; 99283

== ENCOUNTER 2019-05-13 22:32 | Emergency (ER) | payer OTHER, SELFPAY ==
--- OUTSIDE RECORDS SUMMARY | 2019-05-13 22:34 | XMS REPORT ---
:1985 Author Organization [employer] Care Team Providers Name Role Phone Tri Bautista Provider Role Unavailable Allergies, Adverse Reactions, Alerts Substance Reaction Event Type Bactrim rash Drug Allergy Problems Problem Type Condition Code Onset Dates Condition Status Assessment Low back pain M54.5 Active Problem Low back pain M54.5 Active Problem IUD (intrauterine device) in place Z97.5 Active Problem Possible urinary tract infection R39.89 Active Assessment Yeast cystitis B37.41 Active Problem Other chronic pain G89.29 Active Problem Intractable migraine without aura G43.011 Active and with status migrainosus Medications Medication Code Code Instructions Start End Status Dosage System Date Date Macrobid [facility] 05419834291 100 MG Orally Active 1 capsule every 12 hrs with food [address] [facility] 52545469838 200 MG Orally Mar 21, Apr 20, Active 1 capsule every 8 hrs 2017 2017 as needed with food Cyclobenzaprine ND 32403839997 10 MG Orally Active 1 tablet HCl Three times a as needed day Naproxen ND 58174505043 500 MG Orally Mar 27, Apr 26, Active 1 tablet every 12 hrs 2017 2017 with food or milk as needed Diflucan ND 86916093193 150 MG Orally Mar 27, Apr 01, Active 1 tablet Once a day 2017 2017 Diclofenac Sodium ND 46568199760 50 MG Orally Mar 26, Apr 25, Active 1 tablet Three times a 2017 2017 with food day or milk Tylenol Extra ND 25933766088 500 MG Orally Active 1 tablet Strength every 6 hrs as needed Results No Known Results Summary Purpose [employer] Submission
--- OUTSIDE RECORDS SUMMARY | 2019-05-13 22:34 | XMS REPORT ---
:1985 Author Organization [employer] Care Team Providers Name Role Phone Aneta, Tri Provider Role Unavailable Allergies, Adverse Reactions, Alerts Substance Reaction Event Type Bactrim rash Drug Allergy Problems Problem Type Condition Code Onset Dates Condition Status Assessment Low back pain M54.5 Active Assessment Lumbar radiculopathy M54.16 Active Problem Low back pain M54.5 Active Problem IUD (intrauterine device) in place Z97.5 Active Problem Possible urinary tract infection R39.89 Active Assessment Flank pain R10.9 Active Problem Other chronic pain G89.29 Active Problem Intractable migraine without aura G43.011 Active and with status migrainosus Medications Medication Code Code Instructions Start End Status Dosage System Date Date Tylenol Extra ND 46595067218 500 MG Orally Active 1 tablet Strength every 6 hrs as needed Cyclobenzaprine ND 55851177414 10 MG Orally Active 1 tablet HCl Three times a as needed day Diclofenac Sodium ND 32729186952 50 MG Orally Mar 26Apr 25, Active 1 tablet Three times a 2017 2017 with food day or milk Etodolac ND 92296674700 200 MG Orally Mar 21Apr 20, Active 1 capsule every 8 hrs 2017 2017 as needed with food Results No Known Results Summary Purpose [employer] Submission
[2019-05-13] MEDS ORDERED: dexAMETHasone 10 MG/ML VIAL ONE (22:58)
[2019-05-13] MEDS ORDERED: DIPHENHYDRAMINE 50 MG/ML VIAL ONE (22:59)
--- NOTE | 2019-05-13 23:52 | ER ---
Nurse's Notes [facility] Name: Juliane Robertson Age: 34 yrs Sex: Female : 1985 Arrival Date: 05/13/2019 Time: 22:34 Bed 6 Private MD: Diagnosis: Urticaria Presentation: 05/13 22:41 Presenting complaint: Patient states: Rash, hives to general body that began this lp1 afternoon and worsened; No relief with Benadryl at 1730; States feeling slight shortness of breath. Transition of care: patient was not received from another setting of care. Onset: The symptoms/episode began/occurred at 12:30. Anaphylaxis evaluation, the patient reports or I have noted the following symptoms which indicate a significant risk of anaphylaxis: shortness of breath urticaria. Onset of symptoms was May 13, 2019 at 12:30. Risk Assessment: Do you want to hurt yourself or someone else? Patient reports no desire to harm self or others. Initial Sepsis Screen: Does the patient meet any 2 criteria? No. Patient's initial sepsis screen is negative. Does the patient have a suspected source of infection? No. Patient's initial sepsis screen is negative. Care prior to arrival: None. 22:41 Method Of Arrival: Ambulatory lp1 22:41 Acuity: LARY 3 lp1 MIX HOUSE TENDER: 22:42 LMP 04/29/2019 lp1 Historical: - Allergies: 22:43 Bactrim; lp1 - Home Meds: 22:43 None [Active]; lp1 - PMHx: 22:43 Hypertension; lp1 - PSHx: 22:43 Cholecystectomy; ; D \T\ C; lp1 - Immunization history:: Adult Immunizations up to date. - Social history:: Smoking status: Patient/guardian denies using tobacco. - Ebola Screening: : No symptoms or risks identified at this time. Screenin:44 Abuse screen: Denies threats or abuse. Denies injuries from another. Nutritional lp1 screening: No deficits noted. Tuberculosis screening: No symptoms or risk factors identified. Fall Risk None identified. Assessment: 22:37 General: Appears in no apparent distress. comfortable, obese, well groomed, well ao developed, well nourished, Behavior is calm, cooperative, appropriate for age. Pain: Denies pain. Neuro: Level of Consciousness is awake, alert, obeys commands, Oriented to person, place, time, situation, Appropriate for age Moves all extremities. Full function Facial symmetry appears normal. Cardiovascular: Reports None. Respiratory: Airway is patent Trachea midline Respiratory effort is even, unlabored, Respiratory pattern is regular, symmetrical. GI: Abdomen is round obese. : No signs and/or symptoms were reported regarding the genitourinary system. EENT: No signs and/or symptoms were reported regarding the EENT system. Derm: Rash noted that is papular, red, raised. Musculoskeletal: No signs and/or symptoms reported regarding the musculoskeletal system. Circulation, motion, and sensation intact. Range of motion: intact in all extremities. 23:45 Respiratory: Breath sounds are clear. ao 23:46 Reassessment: Patient appears in no apparent distress at this time. Patient and/or ao family updated on plan of care and expected duration. Pain level reassessed. Hives are disappearing. Dr Bernabe notified. 05/14 00:05 Reassessment: DC home. pt agree with the POC and to follow up with PCP. No questions at ao this time. Vital Signs: 05/13 22:42 BP 133 / 99; Pulse 95; Resp 18; Temp 98.4(O); Pulse Ox 100% on R/A; Weight 86.18 kg; lp1 Height 5 ft. 4 in. (162.56 cm); Pain 0/10; 23:46 BP 117 / 76; Pulse 88; Resp 18; Pulse Ox 99% on R/A; Pain 0/10; ao 22:42 Body Mass Index 32.61 (86.18 kg, 162.56 cm) lp1 ED Course: 22:34 Patient arrived in ED. cl3 22:37 Felix Dalal, RN is Primary Nurse. ao 22:40 Riccardo Bernabe MD is Attending Physician. pkl 22:42 Triage completed. lp1 22:42 Arm band placed on. lp1 23:45 Patient has correct armband on for positive identification. Pulse ox on. NIBP on. ao 05/14 00:03 No provider procedures requiring assistance completed. IV discontinued, intact, ao bleeding controlled, No redness/swelling at site. Pressure dressing applied. Administered Medications: 05/13 23:15 Drug: Decadron 10 mg Route: IM; Site: right deltoid; ao 05/14 00:06 Follow up: Response: No adverse reaction ao 05/13 23:15 Drug: Benadryl 50 mg Route: IM; Site: right deltoid; ao 05/14 00:06 Follow up: Response: No adverse reaction ao Outcome: 05/13 23:51 Discharge ordered by . mary 05/14 00:04 Discharged to home ambulatory. ao Condition: stable Discharge instructions given to patient, Instructed on discharge instructions, follow up and referral plans. Demonstrated understanding of instructions, follow-up care, medications, Prescriptions given X 1. 00:06 Patient left the ED. ao Signatures: Riccardo Bernabe MD MD pkl Pena, Laura RN RN lp1 Felix Dalal RN RN Rhys Givens cl3
--- NOTE | 2019-05-13 23:52 | EDPHYS ---
Physician Documentation [facility] Name: Juliane Robertson Age: 34 yrs Sex: Female : 1985 Arrival Date: 05/13/2019 Time: 22:34 Bed 6 Private MD: ED Physician Riccardo Bernabe HPI: 05/13 23:00 This 34 yrs old Female presents to ER via Ambulatory with complaints of pkl Allergic Reaction. 23:00 The patient's rash thought to be caused by an unknown cause. The rash is located on the pkl body diffusely. The rash can be described as urticarial. Onset: The symptoms/episode began/occurred today. Associated signs and symptoms: Pertinent positives: itching. 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 - Social history:: Smoking status: Patient/guardian denies using tobacco. - Ebola Screening: : No symptoms or risks identified at this time. ROS: 23:00 Eyes: Negative for injury, pain, redness, and discharge, ENT: Negative for injury, pkl pain, and discharge, Neck: Negative for injury, pain, and swelling, Cardiovascular: Negative for chest pain, palpitations, and edema, Respiratory: Negative for shortness of breath, cough, wheezing, and pleuritic chest pain, Abdomen/GI: Negative for abdominal pain, nausea, vomiting, diarrhea, and constipation, Back: Negative for injury and pain, : Negative for injury, bleeding, discharge, and swelling, MS/Extremity: Negative for injury and deformity, Neuro: Negative for headache, weakness, numbness, tingling, and seizure. 23:00 Skin: Positive for rash, diffusely. Exam: 23:00 Head/Face: Normocephalic, atraumatic. Eyes: Pupils equal round and reactive to light, pkl extra-ocular motions intact. Lids and lashes normal. Conjunctiva and sclera are non-icteric and not injected. Cornea within normal limits. Periorbital areas with no swelling, redness, or edema. ENT: Nares patent. No nasal discharge, no septal abnormalities noted. Tympanic membranes are normal and external auditory canals are clear. Oropharynx with no redness, swelling, or masses, exudates, or evidence of obstruction, uvula midline. Mucous membranes moist. Neck: Trachea midline, no thyromegaly or masses palpated, and no cervical lymphadenopathy. Supple, full range of motion without nuchal rigidity, or vertebral point tenderness. No Meningismus. Chest/axilla: Normal chest wall appearance and motion. Nontender with no deformity. No lesions are appreciated. Cardiovascular: Regular rate and rhythm with a normal S1 and S2. No gallops, murmurs, or rubs. Normal PMI, no JVD. No pulse deficits. Respiratory: Lungs have equal breath sounds bilaterally, clear to auscultation and percussion. No rales, rhonchi or wheezes noted. No increased work of breathing, no retractions or nasal flaring. Abdomen/GI: Soft, non-tender, with normal bowel sounds. No distension or tympany. No guarding or rebound. No evidence of tenderness throughout. Back: No spinal tenderness. No costovertebral tenderness. Full range of motion. MS/ Extremity: Pulses equal, no cyanosis. Neurovascular intact. Full, normal range of motion. Neuro: Awake and alert, GCS 15, oriented to person, place, time, and situation. Cranial nerves II-XII grossly intact. Motor strength 5/5 in all extremities. Sensory grossly intact. Cerebellar exam normal. Normal gait. 23:00 Skin: rash can be described as urticarial, and is diffusely located. Vital Signs: 22:42 BP 133 / 99; Pulse 95; Resp 18; Temp 98.4(O); Pulse Ox 100% on R/A; Weight 86.18 kg; lp1 Height 5 ft. 4 in. (162.56 cm); Pain 0/10; 23:46 BP 117 / 76; Pulse 88; Resp 18; Pulse Ox 99% on R/A; Pain 0/10; ao 22:42 Body Mass Index 32.61 (86.18 kg, 162.56 cm) lp1 MDM: 22:40 Patient medically screened. pkl 23:50 Data reviewed: vital signs, nurses notes. pkl Administered Medications: 23:15 Drug: Decadron 10 mg Route: IM; Site: right deltoid; ao 05/14 00:06 Follow up: Response: No adverse reaction ao 05/13 23:15 Drug: Benadryl 50 mg Route: IM; Site: right deltoid; ao 05/14 00:06 Follow up: Response: No adverse reaction ao Disposition: 05/13/19 23:51 Discharged to Home. Impression: Urticaria. - Condition is Stable. - Medication Reconciliation Form, Thank You Letter, Antibiotic Education, Prescription Opioid Use form. - Follow up: Private Physician; When: 2 - 3 days; Reason: Re-evaluation by your physician. - Problem is new. - Symptoms have improved. Signatures: Riccardo Bernabe MD MD pkl Kristine Serrano RN RN lp1 Felix Dalal RN RN ao Corrections: (The following items were deleted from the chart) 00:06 05/13 23:51 05/13/2019 23:51 Discharged to Home. Impression: Urticaria. Condition is ao Stable. Forms are Medication Reconciliation Form, Thank You Letter, Antibiotic Education, Prescription Opioid Use. Follow up: Private Physician; When: 2 - 3 days; Reason: Re-evaluation by your physician. Problem is new. Symptoms have improved. pkl
[2019-05-14 01:09] VITALS: TEMP 98.4
[2019-05-14 01:10] VITALS: BP 117/76; O2SAT 99
== END 2019-05-14 00:06 | disposition home or self-care (01) ==
LOC: ER 22:32
DX: L50.9 Urticaria, unspecified (principal); Z88.1 Allergy status to other antibiotic agents
CPT/HCPCS: 96372; 99283; J1100; J1200

== ENCOUNTER 2019-08-02 20:41 | Emergency (ER) | payer OTHER, SELFPAY ==
--- OUTSIDE RECORDS SUMMARY | 2019-08-02 20:43 | XMS REPORT ---
:1985 Author Organization [employer] Care Team Providers Name Role Phone Kimberley Bautista Provider Role Unavailable Allergies, Adverse Reactions, Alerts Substance Reaction Event Type Bactrim rash Drug Allergy Problems Problem Type Condition Code Onset Dates Condition Status Assessment Tingling of skin R20.2 Active Assessment Intractable migraine without aura G43.011 Active and with status migrainosus Problem Tingling in extremities R20.2 Active Problem Possible urinary tract infection R39.89 Active Problem Tingling of skin R20.2 Active Problem Other chronic pain G89.29 Active Problem Intractable migraine without aura G43.011 Active and with status migrainosus Problem Low back pain M54.5 Active Medications Medication Code Code Instructions Start End Status Dosage System Date Date Diclofenac [facility] [address]-53 18 MG Orally Active 1 capsule Three times a with food day or milk as needed Cyclobenzaprine ND 36525858683 10 MG Orally Active 1 tablet HCl Three times a as needed day Topiramate ND 88235331424 25 MG Orally Apr 04, Active 1 tablet Twice a day 2017 Tylenol Extra ND 24381076792 500 MG Orally Active 1 tablet Strength every 6 hrs as needed Gabapentin ND 19782351954 100 MG Orally Jul 10, Active 1 capsule Twice a day 2019 Results No Known Results Summary Purpose [employer]Clinical[employer] Submission
[2019-08-02] MEDS ORDERED: DIAZEPAM 5 MG TABLET ONE (22:10)
--- NOTE | 2019-08-03 00:24 | EDPHYS ---
Physician Documentation [facility] Name: Juliane Robertson Age: 34 yrs Sex: Female : 1985 Arrival Date: 08/02/2019 Time: 20:45 Bed 15 Private MD: Abdulaziz Bennett ED Physician Joseph Campos HPI: 08/02 21:42 This 34 yrs old Female presents to ER via Ambulatory with complaints of snw Pressure and burning in head. 21:42 Onset: The symptoms/episode began/occurred gradually, 2 week(s) ago, and became snw persistent. Associated signs and symptoms: Pertinent positives: headache. Modifying factors: The patient symptoms are alleviated by nothing. The patient has experienced similar episodes in the past. The patient has been recently seen by a physician: with similar presenting complaints, given Diclofenac, Topamax. 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 - Coronavirus screen:: The patient has NOT traveled to [place] in the past 14 days. Proceed with normal triage process as indicated. - Social history:: Smoking status: Patient denies any tobacco usage or history of. - Ebola Screening: : No symptoms or risks identified at this time. ROS: 21:41 Eyes: Negative for injury, pain, redness, and discharge, ENT: Negative for injury, snw pain, and discharge, Neck: Negative for injury, pain, and swelling, Cardiovascular: Negative for chest pain, palpitations, and edema, Respiratory: Negative for shortness of breath, cough, wheezing, and pleuritic chest pain, Abdomen/GI: Negative for abdominal pain, nausea, vomiting, diarrhea, and constipation, Back: Negative for injury and pain, : Negative for injury, bleeding, discharge, and swelling, MS/Extremity: Negative for injury and deformity, Skin: Negative for injury, rash, and discoloration, Neuro: Negative for headache, weakness, numbness, tingling, and seizure, Psych: Negative for depression, anxiety, suicide ideation, homicidal ideation, and hallucinations. 21:41 Constitutional: Positive for body aches, fatigue, fever, malaise, 101. Exam: 21:41 Constitutional: This is a well developed, well nourished patient who is awake, alert, snw and in no acute distress. Head/Face: Normocephalic, atraumatic. Eyes: Pupils equal round and reactive to light, extra-ocular motions intact. Lids and lashes normal. Conjunctiva and sclera are non-icteric and not injected. Cornea within normal limits. Periorbital areas with no swelling, redness, or edema. ENT: Nares patent. No nasal discharge, no septal abnormalities noted. Tympanic membranes are normal and external auditory canals are clear. Oropharynx with no redness, swelling, or masses, exudates, or evidence of obstruction, uvula midline. Mucous membranes moist. Neck: Trachea midline, no thyromegaly or masses palpated, and no cervical lymphadenopathy. Supple, full range of motion without nuchal rigidity, or vertebral point tenderness. No Meningismus. Chest/axilla: Normal chest wall appearance and motion. Nontender with no deformity. No lesions are appreciated. Cardiovascular: Regular rate and rhythm with a normal S1 and S2. No gallops, murmurs, or rubs. Normal PMI, no JVD. No pulse deficits. Respiratory: Lungs have equal breath sounds bilaterally, clear to auscultation and percussion. No rales, rhonchi or wheezes noted. No increased work of breathing, no retractions or nasal flaring. Abdomen/GI: Soft, non-tender, with normal bowel sounds. No distension or tympany. No guarding or rebound. No evidence of tenderness throughout. Back: No spinal tenderness. No costovertebral tenderness. Full range of motion. Skin: Warm, dry with normal turgor. Normal color with no rashes, no lesions, and no evidence of cellulitis. MS/ Extremity: Pulses equal, no cyanosis. Neurovascular intact. Full, normal range of motion. Neuro: Awake and alert, GCS 15, oriented to person, place, time, and situation. Cranial nerves II-XII grossly intact. Motor strength 5/5 in all extremities. Sensory grossly intact. Cerebellar exam normal. Normal gait. Psych: Awake, alert, with orientation to person, place and time. Behavior, mood, and affect are within normal limits. Vital Signs: 20:57 BP 144 / 95; Pulse 84; Resp 16 S; Temp 98.2(O); Pulse Ox 100% on R/A; Weight 104.33 kg bb (R); Height 5 ft. 4 in. (162.56 cm) (R); Pain 9/10; 22:00 BP 135 / 75; Pulse 80; Resp 18; Pulse Ox 98% on R/A; rr5 23:00 BP 120 / 81; Pulse 81; Resp 16; Pulse Ox 99% on R/A; rr5 08/03 00:00 BP 126 / 84; Pulse 79; Resp 17; Pulse Ox 98% on R/A; rr5 00:31 BP 118 / 80; Pulse 75; Resp 16; Temp 98.2; Pulse Ox 99% ; Pain 4/10; rr5 08/02 20:57 Body Mass Index 39.48 (104.33 kg, 162.56 cm) bb MDM: 08/02 20:59 Patient medically screened. snw 08/03 00:24 Data reviewed: vital signs, nurses notes. Data interpreted: Pulse oximetry: on room air snw is 99 %. Interpretation: normal. Counseling: I had a detailed discussion with the patient and/or guardian regarding: the historical points, exam findings, and any diagnostic results supporting the discharge/admit diagnosis, the presence of at least one elevated blood pressure reading (>120/80) during this emergency department visit, lab results, radiology results, the need for outpatient follow up, to return to the emergency department if symptoms worsen or persist or if there are any questions or concerns that arise at home. Special discussion: Based on the history and exam findings, there is no indication for further emergent testing or inpatient evaluation. I discussed with the patient/guardian the need to see the neurologist for further evaluation of the symptoms. I discussed with the patient/guardian the need to see the primary care provider for further evaluation of the symptoms. 08/02 21:24 Order name: Flu snw 08/02 21:24 Order name: Strep snw 08/02 21:24 Order name: CT Head C Spine snw 08/02 22:03 Order name: Group A Streptococcus Rapid Sc; Complete Time: 22:12 EDMS 08/02 22:19 Order name: Influenza Screen (A ; Complete Time: 22:22 EDMS Administered Medications: 08/02 22:12 Drug: Valium 5 mg Route: PO; rr5 23:30 Follow up: Response: No adverse reaction; Pain is decreased rr5 Disposition: 08/03 00:52 Co-signature as Attending Physician, Joseph Campos MD I agree with the assessment and kdr plan of care. Disposition: 08/03/19 00:22 Discharged to Home. Impression: Migraine, Influenza due to other identified influenza virus - B. - Condition is Stable. - Discharge Instructions: Migraine Headache, Tension Headache, Adult, Influenza, Adult, Rehydration, Adult. - Prescriptions for orphenadrine citrate 100 mg Oral Tablet Sustained Release - take 1 tablet by ORAL route 2 times per day As needed; 20 tablet. promethazine 25 mg Oral Tablet - take 1 tablet by ORAL route every 6 hours As needed; 20 tablet. - Work release form, Medication Reconciliation Form, Thank You Letter, Antibiotic Education, Prescription Opioid Use form. - Follow up: Emergency Department; When: As needed; Reason: Worsening of condition. Follow up: Abdulaziz Bennett MD; When: 2 - 3 days; Reason: Recheck today's complaints, Continuance of care, Re-evaluation by your physician. Signatures: Dispatcher [employer] [facility] Joseph Campos MD MD kdr Therrien, Shelly, RECORDS AND INFORMATION MANAGER-C RECORDS AND INFORMATION MANAGER-Csnw Nichole Ward RN RN Jim Lucero RN RN rr5 Corrections: (The following items were deleted from the chart) 00:33 00:22 08/03/2019 00:22 Discharged to Home. Impression: Migraine; Influenza due to other rr5 identified influenza virus - B. Condition is Stable. Forms are Medication Reconciliation Form, Thank You Letter, Antibiotic Education, Prescription Opioid Use. Follow up: Emergency Department; When: As needed; Reason: Worsening of condition. Follow up: Abdulaziz Bennett; When: 2 - 3 days; Reason: Recheck today's complaints, Continuance of care, Re-evaluation by your physician. snw
--- NOTE | 2019-08-03 00:24 | ER ---
Nurse's Notes [facility] Name: Juliane Robertson Age: 34 yrs Sex: Female : 1985 Arrival Date: 08/02/2019 Time: 20:45 Bed 15 Private MD: Abdulaziz Bennett Diagnosis: Migraine;Influenza due to other identified influenza virus-B Presentation: 08/02 20:53 Presenting complaint: Patient states: she has had a migraine for about 10 days she saw bb her PCP and was started on Diclofenac and Topiramate which is not helping the pain and pressure is getting worse. Transition of care: patient was not received from another setting of care. Onset of symptoms was July 23, 2019. Risk Assessment: Do you want to hurt yourself or someone else? Patient reports no desire to harm self or others. Initial Sepsis Screen: Does the patient meet any 2 criteria? No. Patient's initial sepsis screen is negative. Does the patient have a suspected source of infection? No. Patient's initial sepsis screen is negative. Care prior to arrival: None. 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 - Coronavirus screen:: The patient has NOT traveled to [place] in the past 14 days. Proceed with normal triage process as indicated. - Social history:: Smoking status: Patient denies any tobacco usage or history of. - Ebola Screening: : No symptoms or risks identified at this time. Screenin:55 Abuse screen: Denies threats or abuse. Denies injuries from another. Nutritional rr5 screening: No deficits noted. Tuberculosis screening: No symptoms or risk factors identified. Fall Risk None identified. Total Solis Fall Scale indicates No Risk (0-24 pts). Assessment: 20:55 General: Appears in no apparent distress. uncomfortable, Behavior is calm, cooperative, rr5 appropriate for age. Pain: Complains of pain in top of the head Pain radiates to back of the head Pain currently is 9 out of 10 on a pain scale. Quality of pain is described as burning, pressure, Pain began gradually, Is intermittent. Neuro: Level of Consciousness is awake, alert, obeys commands, Oriented to person, place, time, situation, Appropriate for age Reports headache parietal area, occipital area, that is the "worst ever". Cardiovascular: Capillary refill < 3 seconds Patient's skin is warm and dry. Respiratory: Airway is patent Respiratory effort is even, unlabored, Respiratory pattern is regular, symmetrical. GI: No signs and/or symptoms were reported involving the gastrointestinal system. : No signs and/or symptoms were reported regarding the genitourinary system. EENT: No signs and/or symptoms were reported regarding the EENT system. Derm: Skin is intact, is healthy with good turgor, Skin temperature is warm. Musculoskeletal: Circulation, motion, and sensation intact. Capillary refill < 3 seconds. 22:00 Reassessment: Patient appears in no apparent distress at this time. No changes from rr5 previously documented assessment. Patient and/or family updated on plan of care and expected duration. Pain level reassessed. Patient is alert, oriented x 3, equal unlabored respirations, skin warm/dry/pink. 23:00 Reassessment: Patient appears in no apparent distress at this time. Patient is alert, rr5 oriented x 3, equal unlabored respirations, skin warm/dry/pink. awaiting for CT result. Patient states symptoms have improved. 08/03 00:00 Reassessment: Patient appears in no apparent distress at this time. waiting for CT rr5 result. Patient states feeling better. Patient states symptoms have improved. 00:31 Reassessment: Patient appears in no apparent distress at this time. Patient is alert, rr5 oriented x 3, equal unlabored respirations, skin warm/dry/pink. discharge instruction given and explained without complaints made,verbalized understanding. Patient states feeling better. Patient states symptoms have improved. Vital Signs: 08/02 20:57 BP 144 / 95; Pulse 84; Resp 16 S; Temp 98.2(O); Pulse Ox 100% on R/A; Weight 104.33 kg bb (R); Height 5 ft. 4 in. (162.56 cm) (R); Pain 9/10; 22:00 BP 135 / 75; Pulse 80; Resp 18; Pulse Ox 98% on R/A; rr5 23:00 BP 120 / 81; Pulse 81; Resp 16; Pulse Ox 99% on R/A; rr5 08/03 00:00 BP 126 / 84; Pulse 79; Resp 17; Pulse Ox 98% on R/A; rr5 00:31 BP 118 / 80; Pulse 75; Resp 16; Temp 98.2; Pulse Ox 99% ; Pain 4/10; rr5 08/02 20:57 Body Mass Index 39.48 (104.33 kg, 162.56 cm) bb ED Course: 08/02 20:45 Patient arrived in ED. es 20:45 Abdulaziz Bennett MD is Private Physician. es 20:48 Melani Mittal FNP-C is [facility]. snw 20:48 Joseph Campos MD is Attending Physician. snw 20:50 Jim Rodriguez RN is Primary Nurse. rr5 20:55 Triage completed. bb 20:55 Patient has correct armband on for positive identification. Placed in gown. Bed in low rr5 position. Call light in reach. Pulse ox on. NIBP on. 20:57 Arm band placed on Patient placed in an exam room, on a stretcher, on pulse oximetry. bb 08/03 00:22 Abdluaziz Bennett MD is Referral Physician. snw 00:32 No provider procedures requiring assistance completed. Patient did not have IV access rr5 during this emergency room visit. 14:39 CT Head C Spine In Process Unspecified. EDMS Administered Medications: 08/02 22:12 Drug: Valium 5 mg Route: PO; rr5 23:30 Follow up: Response: No adverse reaction; Pain is decreased rr5 Outcome: 08/03 00:22 Discharge ordered by . snw 00:32 Discharged to home ambulatory. rr5 00:32 Condition: stable 00:32 Discharge instructions given to patient, Instructed on discharge instructions, follow up and referral plans. medication usage, Demonstrated understanding of instructions, follow-up care, medications, Prescriptions given X 2. 00:33 Patient left the ED. rr5 Signatures: Dispatcher [employer] EDMS Melani Mittal FNP-C PRINCIPAL ANDROID DEVELOPER-Csnw Alice Fine Brenda, RN RN bb Jim Rodriguez, RN RN rr5
[2019-08-03 02:25] VITALS: BP 126/84; O2SAT 98
--- NOTE | 2019-08-04 11:11 | RAD REPORT ---
EXAM DESCRIPTION: CT - [id number] - 08/03/2019 2:35 am CLINICAL HISTORY: 34-year-old female with migraine for 10 days. COMPARISON: None. TECHNIQUE: CT brain without contrast. This exam was performed according to our departmental dose opt imization program which includes use of automated exposure control, adjustment of the mA and/or kV ac cording to patient size and/or use of iterative reconstruction technique. FINDINGS: The ventricles, sulci, and cisterns are symmetric and unremarkable. The alvarez-white matte r differentiation is preserved. There is no mass effect, midline shift, intra- or extra-axial fluid collection/acute hemorrhage. The osseous structures are unremarkable. The paranasal sinuses reve al minimal mucosal thickening and mastoid air cells are clear. IMPRESSION: 1. No acute intracranial abnormalities. 2. Minimal paranasal sinus mucosal thickening. TECHNIQUE: Cervical spine CT was performed without contrast. Multiplanar reformatted images were pro vided. This exam was performed according to our departmental dose optimization program which includes use of automated exposure control, adjustment of the mA and/or kV according to patient size and/or u se of iterative reconstruction technique. COMPARISON: None. FINDINGS: There is normal alignment of the cervical spine without fracture or subluxation. The facet s are normal in alignment bilaterally. The posterior elements including the spinous processes are int act. Reversal of the cervical spine which may be secondary to positioning for the examination. Morphology and attenuation of the vertebral bodies and intervertebral disk spaces is within normal li mits. The pre-and paravertebral soft tissues are within normal limits. IMPRESSION: 1. Reversal of the cervical spine which may be secondary to positioning for the examinat ion versus spasm. 2. No fracture or acute subluxation. Electronically signed by: Niyah Garcia MD 08/02/2019 11:11 PM MARKETING OPERATIONS ANALYST Due to temporary technical issues with the PACS/Fluency reporting system, reports are being signed by the in house radiologist as a courtesy to ensure prompt reporting. The interpreting radiologist is f ully responsible for the content of the report.
== END 2019-08-03 00:33 | disposition home or self-care (01) ==
LOC: ER 20:41
DX: J10.1 Influenza due to other identified influenza virus with other respiratory manifestations (principal); G43.909 Migraine, unspecified, not intractable, without status migrainosus; I10 Essential (primary) hypertension; Z88.1 Allergy status to other antibiotic agents
CPT/HCPCS: 70450; 72125; 87070; 87081; 87804; 99284

== ENCOUNTER 2022-02-28 20:13 | Emergency (ER) | payer BC ==
--- OUTSIDE RECORDS SUMMARY | 2022-02-28 20:16 | XMS REPORT | Continuity of Care Document ---
:1985 Author Organization [facility] t Address [address] [place] [address] Care Team Providers Name Role Phone Kimberley Bautista Attending Clinician Unavailable Problems Condition Condition Condition Status Onset Resolution Last Treating Co mments Source Name Details Category Date Date Treatment Clinician Date Low back Low back Problem Active Commo n pain pain [facility] Possible Possible Problem Active Commo n urinary urinary [facility] tract tract - [facility] infection infection [facility] Other Other Problem Active Common chronic chronic [facility] pain [facility] Intractabl Intractabl Problem Active C ommon e migraine e migraine Sp [facility] without without - [facility] aura and aura and St with with [facility] status status Medical migrainosu migrainosu Ce nter s s Tingling Tingling Problem Active Commo n of skin of skin [facility] Allergies, Adverse Reactions, Alerts Allergy Allergy Status Severity Reaction(s) Onset Inactive Treating Comm ents Source Name Type Date Date Clinician Bactrim Adverse Active rash Common Reaction [facility] Medications Ordered Filled Start Stop Current Ordering Indication Dosage Frequency Signature Comments Components Source Medication Medication Date Date Medication? Clinician (SIG) Name Name Gabapentin Gabapentin Yes Kimberley 1 capsule Common 1-23 [place] [facility] 00:00: - [facility] Topiramate Topiramate 2017-06 Yes Kimberley 1 tablet Common 0-18 [place] [facility] 00:00: - [facility] Tylenol Tylenol Yes Kimberley 1 tablet Comm on Extra Extra [place] as needed [facility] Strength Strength [facility] Cyclobenzap Cyclobenzap Yes Kimberley 1 tablet Common rine HCl rine HCl [place] as needed S pirit [facility] Diclofenac Diclofenac Yes Kimberley 1 capsule Common [place] with food Spirit or milk as - [facility] needed [facility] Procedures This patient has no known procedures. Encounters Start End Encounter Admission Attending Care Care Encounter Source Date/Time Date/Time Type Type Clinicians Facility Department ID 2021-07-13 Outpatient WALE Bautista [facility] [id number] Common 11:02:43 Kimberley [id number] [facility] 2021-07-13 Outpatient WALE Bautista [facility] [id number] Common 11:02:34 Kimberley [id number] [facility] 2019-07-10 2019-07-10 [facility] [id number] Common 10:40:00 10:40:[address] [facility] 2018-03-27 2018-03-27 [facility] [id number] Common 14:30:00 14:30:[address] [facility] 2018-03-21 2018-03-21 [facility] [id number] Common 09:30:00 09:30:[address] [facility] Results This patient has no known results.
[2022-02-28] MEDS ORDERED: NA CHLORIDE 0.9% 1,000 ML ONE (22:17)
[2022-02-28] MEDS ORDERED: KETOROLAC 30 MG/ML INJ ONE (22:17)
[2022-02-28] MEDS ORDERED: ONDANSETRON 4 MG/2 ML VIAL ONE (22:17)
[2022-02-28 22:29] LABS: Absolute Lymphocytes (CBC) 2.4 K/uL (0.7-4.9); Lymphocytes % 27.2 % (15.3-44.8); MCV 82.4 fL (80-100); MPV 7.4 fL (7.6-11.3); RBC Red Blood Cell Count 4.49 M/uL (3.86-4.86)
[2022-03-01 00:28] LABS: Albumin 3.1 g/dL (3.4-5.0); Bilirubin Total 0.2 mg/dL (0.2-1.0); Potassium 3.8 mmol/L (3.5-5.1); Protein, Total 6.9 g/dL (6.4-8.2)
--- NOTE | 2022-03-01 02:06 | EDPHYS ---
Physician Documentation [facility] Name: Juliane Robertson Age: 36 yrs Sex: Female : 1985 Arrival Date: 02/28/2022 Time: 20:21 Bed 20 Private MD: ED Physician Joseph Campos HPI: 03/01 19:50 This 36 yrs old Female presents to ER via Ambulatory with complaints of kdr Abdominal Pain, Nausea/Vomiting. 19:50 The patient has a history of a cholecystectomy however since last Sunday, she has had kdr pain in her upper abdomen. Specifically her epigastric and right upper quadrant. Her pain is similar to that she had prior to her cholecystectomy. She has had some nausea but no vomiting and no other significant abdominal complaints she is otherwise in her usual state of health. Onset: The symptoms/episode began/occurred Sunday. Severity of symptoms: At their worst the symptoms were mild moderate just prior to arrival, in the emergency department the symptoms are unchanged. The patient has experienced similar episodes in the past, a few times. The patient has not recently seen a physician. 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 Historical: - Allergies: 20:51 Bactrim; 5 - PMHx: 20:51 Hypertension; Migraines; 5 - Immunization history:: Adult Immunizations up to date. - Social history:: Smoking status: Patient denies any tobacco usage or history of. ROS: 03/01 19:50 Constitutional: Negative for fever, chills, and weight loss, Eyes: Negative for injury, kdr pain, redness, and discharge, ENT: Negative for injury, pain, and discharge, Neck: Negative for injury, pain, and swelling, Cardiovascular: Negative for chest pain, palpitations, and edema, Respiratory: Negative for shortness of breath, cough, wheezing, and pleuritic chest pain, Back: Negative for injury and pain, : Negative for injury, bleeding, discharge, and swelling, MS/Extremity: Negative for injury and deformity, Skin: Negative for injury, rash, and discoloration, Neuro: Negative for headache, weakness, numbness, tingling, and seizure activity. Psych: Negative for depression, anxiety, suicide ideation, homicidal ideation, and hallucinations, Allergy/Immunology: Negative for hives, rash, and allergies, Endocrine: Negative for neck swelling, polydipsia, polyuria, polyphagia, and marked weight changes, Hematologic/Lymphatic: Negative for swollen nodes, abnormal bleeding, and unusual bruising. Abdomen/GI: Positive for abdominal pain, nausea, Pain radiates into her right upper quadrant and around to her right flank.. Exam: 19:50 Constitutional: This is a well developed, well nourished patient who is awake, alert, kdr and in no acute distress. Head/Face: Normocephalic, atraumatic. Eyes: Pupils equal round and reactive to light, extra-ocular motions intact. Lids and lashes normal. Conjunctiva and sclera are non-icteric and not injected. Cornea within normal limits. Periorbital areas with no swelling, redness, or edema. Neck: Trachea midline, no thyromegaly or masses palpated, and no cervical lymphadenopathy. Supple, full range of motion without nuchal rigidity, or vertebral point tenderness. No Meningismus. Chest/axilla: Normal chest wall appearance and motion. Nontender with no deformity. No lesions are appreciated. Cardiovascular: Regular rate and rhythm with a normal S1 and S2. No gallops, murmurs, or rubs. Normal PMI, no JVD. No pulse deficits. Respiratory: Lungs have equal breath sounds bilaterally, clear to auscultation and percussion. No rales, rhonchi or wheezes noted. No increased work of breathing, no retractions or nasal flaring. Back: No spinal tenderness. No costovertebral tenderness. Full range of motion. Skin: Warm, dry with normal turgor. Normal color with no rashes, no lesions, and no evidence of cellulitis. MS/ Extremity: Pulses equal, no cyanosis. Neurovascular intact. Full, normal range of motion. Neuro: Awake and alert, GCS 15, oriented to person, place, time, and situation. Cranial nerves II-XII grossly intact. Motor strength 5/5 in all extremities. Sensory grossly intact. Cerebellar exam normal. Normal gait. Psych: Awake, alert, with orientation to person, place and time. Behavior, mood, and affect are within normal limits. 19:50 Abdomen/GI: Inspection: abdomen appears normal, obese Bowel sounds: active, Palpation: soft, mild abdominal tenderness, in the anterior aspect of right lateral abdomen and right upper quadrant. Vital Signs: 02/28 20:50 BP 127 / 72; Pulse 83; Resp 18; Temp 97.9; Pulse Ox 100% ; Weight 107.05 kg; Height 5 5 ft. 4 in. (162.56 cm); Pain 9/10; 20:50 Body Mass Index 40.51 (107.05 kg, 162.56 cm) [facility] MDM: 03/01 02:05 Patient medically screened. kdr 19:50 Data reviewed: vital signs, nurses notes, lab test result(s), radiologic studies. kdr Counseling: I had a detailed discussion with the patient and/or guardian regarding: the historical points, exam findings, and any diagnostic results supporting the discharge/admit diagnosis, lab results, radiology results, the need for outpatient follow up. 02/28 21:54 Order name: CBC with Diff; Complete Time: 23:52 kdr 02/28 21:54 Order name: CMP; Complete Time: 01:44 kdr 02/28 21:54 Order name: Lipase; Complete Time: 01:44 kdr 02/28 21:54 Order name: CT Abd/Pelvis - IV Contrast Only kdr 03/01 01:17 Order name: CREATININE WHOLE BLOOD; Complete Time: 01:44 EDMS 02/28 21:54 Order name: IV Saline Lock; Complete Time: 22:08 kdr 02/28 21:54 Order name: Labs collected and sent kdr Administered Medications: 02/28 22:12 Drug: NS 0.9% 1000 ml Route: IV; Rate: 1 bolus; Site: right antecubital; ja4 22:12 Drug: Zofran (Ondansetron) 4 mg Route: IVP; Site: right antecubital; ja4 22:12 Drug: Ketorolac 15 mg Route: IVP; Site: right antecubital; ja4 03/01 02:22 Not Given (Patient Refused): morphine 4 mg IVP once over 4 mins ja4 02:22 Not Given (Patient Refused): Zofran (Ondansetron) 4 mg IVP once; over 2 minutes ja4 02:22 Drug: traMADol 50 mg Route: PO; ja4 Disposition Summary: 03/01/22 02:05 Discharge Ordered Location: Home kdr Problem: new kdr Symptoms: have improved kdr Condition: Stable kdr Diagnosis - Upper abdominal pain, unspecified kdr Followup: kdr - With: Private Physician - When: 2 - 3 days - Reason: If symptoms return, Further diagnostic work-up, Recheck today's complaints, Continuance of care, Re-evaluation by your physician Discharge Instructions: - Discharge Summary Sheet kdr - Abdominal Pain, Adult, [id number] kdr Forms: - Medication Reconciliation Form kdr - Thank You Letter kdr - Prescription Opioid Use kdr Prescriptions: - Tramadol 50 mg Oral Tablet - take 1 tablet by ORAL route every 8 hours as needed; 12 tablet; Refills: 0, kdr Product Selection Permitted - Pepcid 20 mg Oral Tablet - take 1 tablet by ORAL route once daily for 10 days; 10 tablet; Refills: 0, kdr Product Selection Permitted Signatures: Dispatcher [employer] EDJoseph Louis MD MD kdr Rees, Jessica, RN RN jh5 Navi Hernandez RN RN ja4
--- NOTE | 2022-03-01 02:06 | ER ---
Nurse's Notes [facility] Name: Juliane Robertson Age: 36 yrs Sex: Female : 1985 Arrival Date: 02/28/2022 Time: 20:21 Bed 20 Private MD: Diagnosis: Upper abdominal pain, unspecified Presentation: 02/28 20:50 Chief complaint: Patient states: upper left abdominal pain since Sunday that is jh5 getting worse. Coronavirus screen: Vaccine status: Patient reports receiving the 2nd dose of the covid vaccine. Client denies travel out of the [place] in the last 14 days. Ebola Screen: Patient negative for fever greater than or equal to 101.5 degrees Fahrenheit, and additional compatible Ebola Virus Disease symptoms Patient denies exposure to infectious person. Patient denies travel to an Ebola-affected area in the 21 days before illness onset. Initial Sepsis Screen: Does the patient meet any 2 criteria? No. Patient's initial sepsis screen is negative. Does the patient have a suspected source of infection? No. Patient's initial sepsis screen is negative. Risk Assessment: Do you want to hurt yourself or someone else? Patient reports no desire to harm self or others. Onset of symptoms was February 26, 2022. 20:50 Method Of Arrival: Ambulatory [facility] 20:50 Acuity: LARY 3 5 Triage Assessment: 20:51 General: Appears in no apparent distress. uncomfortable, obese, Behavior is calm, [facility] cooperative, appropriate for age. Pain: Complains of pain in abdomen. GI: Abdomen is round Reports upper abdominal pain, nausea. 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 - Social history:: Smoking status: Patient denies any tobacco usage or history of. Screenin:18 Abuse screen: Denies threats or abuse. Nutritional screening: No deficits noted. 4 Tuberculosis screening: No symptoms or risk factors identified. Fall Risk IV access (20 points). Assessment: 21:14 General: Appears uncomfortable, obese, Behavior is calm, cooperative, appropriate for 6 age. Pain: Complains of pain in abdomen. Vital Signs: 20:50 BP 127 / 72; Pulse 83; Resp 18; Temp 97.9; Pulse Ox 100% ; Weight 107.05 kg; Height 5 5 ft. 4 in. (162.56 cm); Pain 9/10; 20:50 Body Mass Index 40.51 (107.05 kg, 162.56 cm) 5 ED Course: 20:21 Patient arrived in ED. j6 20:51 Triage completed. [facility] 20:51 Arm band placed on right wrist. [facility] 21:04 Navi Hernandez, IRMA is Primary Nurse. ja4 21:18 Patient has correct armband on for positive identification. Bed in low position. Call ja4 light in reach. Side rails up X 1. 21:18 Inserted saline lock: 20 gauge in right antecubital area, using aseptic technique. ja4 Blood collected. 21:45 Joseph Campos MD is Attending Physician. kdr 03/01 00:53 CT Abd/Pelvis - IV Contrast Only In Process Unspecified. EDNM 02:30 IV discontinued, intact, bleeding controlled, No redness/swelling at site. Pressure ja4 dressing applied. Administered Medications: 02/28 22:12 Drug: NS 0.9% 1000 ml Route: IV; Rate: 1 bolus; Site: right antecubital; ja4 22:12 Drug: Zofran (Ondansetron) 4 mg Route: IVP; Site: right antecubital; ja4 22:12 Drug: Ketorolac 15 mg Route: IVP; Site: right antecubital; ja4 03/01 02:22 Not Given (Patient Refused): morphine 4 mg IVP once over 4 mins ja4 02:22 Not Given (Patient Refused): Zofran (Ondansetron) 4 mg IVP once; over 2 minutes ja4 02:22 Drug: traMADol 50 mg Route: PO; ja4 Outcome: 02:05 Discharge ordered by . kdr 02:30 Discharged to home ambulatory. ja4 02:30 Condition: stable 02:30 Discharge instructions given to patient, Instructed on discharge instructions, follow up and referral plans. medication usage, Prescriptions given X 2. 02:31 Patient left the ED. 4 Signatures: Dispatcher [employer] EDNM Joseph Campos MD MD kdr Jeffries, Jennifer [facility] Verena Morse, RN RN jh5 Navi Hernandez, RN RN ja4
[2022-03-01] MEDS ORDERED: TRAMADOL HCL 50 MG TAB ONE (02:31)
--- NOTE | 2022-03-01 14:12 | RAD REPORT ---
EXAM DESCRIPTION: CT - Abdomen Pelvis W Contrast - 03/01/2022 6:50 am CLINICAL HISTORY: 36 years, Female, Abdominal pain, acute, nonlocalized COMPARISON: None TECHNIQUE: Contrast-enhanced images of the abdomen and pelvis were performed utilizing 5 mm slice th ickness at 5 mm interval reconstruction from the lung bases to the ischial tuberosities after the adm inistration of IV contrast . In addition multiplanar reformats in the coronal and sagittal plane were obtained and reviewed. This exam was performed according to our departmental dose-optimization protocol, which includes auto mated exposure control, adjustment of the mA and/or kV according to patient size and/or use of iterat thea reconstruction technique. FINDINGS: The lung bases demonstrate to be clear. The liver demonstrate decreased attenuation corresponding to fatty infiltration. Otherwise the liver, pancreas, spleen and adrenal glands demonstrate to be unremarkable, no focal lesions are noted. Surgical clips within the gallbladder fossa correspond to previous cholecystectomy. The kidneys demonstrate normal uptake of contrast media. No evidence for nephrolithiasis and/or hydro nephrosis. Grossly the unopacified stomach, small bowel and large bowel demonstrate to be within normal limits. There is no evidence for bowel dilatation/or free air. The appendix is normal. The urinary bladder was partially distended with no gross abnormalities. The uterus is unremarkable . There are no adnexal masses. The aorta demonstrate minimal. There is no retroperitoneal lymphad enopathy. There is no ascites. The rest of the soft tissue and bony structures are within normal limi ts. IMPRESSION: No acute intra-abdominal process. Fatty infiltration of the liver. Status post cholecystectomy. Electronically signed by: Deo Tate MD 03/01/2022 1:23 AM CDT Due to temporary technical issues with the PACS/Fluency reporting system, reports are being signed by the in house radiologists without review as a courtesy to insure prompt reporting. The interpreting radiologist is fully responsible for the content of the report.
[2022-03-01 17:43] VITALS: BP 127/72; TEMP 97.9; O2SAT 100
== END 2022-03-01 02:31 | disposition home or self-care (01) ==
LOC: ER 20:13
DX: R10.11 Right upper quadrant pain (principal); I10 Essential (primary) hypertension; R11.2 Nausea with vomiting, unspecified; Z88.1 Allergy status to other antibiotic agents
CPT/HCPCS: 85025; 36415; 82565; 83690; 80053; 74177; 96375; 96374; 99284; Q9967; J7030; J2405